=== PATIENT | female | born 1965 | race Caucasian/White ===

== ENCOUNTER → 2017-02-19 | Outpatient (CLI) | payer OTHER ==
[~2017-02-19] MED LIST: ALEVE PO; OXYC1TAB3 PO; PRED50TA PO; SUMA100T16 PO; [UNRECOGNIZED DRUG - OTHER]
--- NOTE | 2017-02-19 16:38 | MAMMOGRAPHY REPORT ---
BILATERAL DIGITAL SCREENING MAMMOGRAM TOMOSYNTHESIS WITH CAD: 02/19/2017 CLINICAL HISTORY: Routine screening. Patient has no complaints. TECHNIQUE: Breast tomosynthesis in addition to standard 2D mammography was performed. Current study was also evaluated with a Computer Aided Detection (CAD) system. COMPARISON: Comparison is made to exams dated: 05/29/2016 mammogram, 01/09/2016 mammogram, 08/15/2010 mammogram, and 08/08/2010 mammogram - [facility]. BREAST COMPOSITION: The tissue of both breasts is extremely dense, which lowers the sensitivity of mammography. FINDINGS: The patient failed to follow-up for a previously recommended short interval follow-up diag nostic exam to ensure stability of other microcalcifications after stereotactic biopsy performed in the left breast. There is a stable metallic biopsy marker in the upper outer posterior left breast. There are punct ate microcalcifications scattered throughout each breast, best appreciated in the inferior aspect of the breasts on the MLO views. There is currently no new suspicious grouping or cluster of microcalc ifications. Although the patient failed to follow-up for repeat spot magnification views in the stacie asts to ensure stability of the scattered and loosely grouped microcalcifications which were better visualized compared to prior mammograms, given the diffuse bilateral nature and previous left stereo tactic biopsy which yielded benign results, would recommend continuation of annual screening mammogr aphy schedule. No obvious new mass, focal area of architectural distortion or developing asymmetry is seen bilatera lly. IMPRESSION: ACR BI-RADS CATEGORY 1: NEGATIVE There is no mammographic evidence of malignancy. A 1 year screening mammogram is recommended. The p atient will receive written notification of the results. Approximately 10% of breast cancers are not detected with mammography. A negative mammographic repor t should not delay biopsy if a clinically suggestive mass is present. Lenore Greer M.D. ay/:02/19/2017 15:30:50 Horse Show Judge: Valerie MATA(Kevin)(M), [facility] letter sent: Normal 1/2 BI-RADS Code: ACR BI-RADS Category 1: Negative
== END | disposition home or self-care (01) ==
LOC: C.MAMM 14:24
PROVIDERS: ATTEND Family Medicine
DX: Z12.31 Encounter for screening mammogram for malignant neoplasm of breast (principal)

== ENCOUNTER 2020-03-11 18:04 | Inpatient (IN) ==
[2020-03-11] MEDS ORDERED: DiphenhydrAMINE HCL 50 MG/ML VIAL IV STA (19:48)
[2020-03-11] MEDS ORDERED: SODIUM CHLORIDE 0.9% 1000ML 2,000 ML IV ONE (19:48)
[2020-03-11] MEDS ORDERED: ONDANSETRON INJ 2 MG/ML 2 ML VIAL IV STA (19:48)
[2020-03-11] MEDS ORDERED: ACETAMINOPHEN 500 MG TAB PO STA (19:50)
[2020-03-11 20:08] LABS: Basophils # (auto) 0.02 K/uL (0-0.2); Basophils % (auto) 0.5 %; Eosinophils # (auto) 0.04 K/uL (0-0.5); Eosinophils % (auto) 0.9 %; Hematocrit (blood only) 35.9 % (37-47); Hemoglobin 12.2 g/dL (12.0-16.0); Lymphocytes # (auto) 0.82 K/uL (1.2-3.4); Lymphocytes % (auto) 19.4 %; Mean Corpuscular Hemoglobin 29.4 pg (25-34); Mean Corpuscular Volume 86.5 fL (80-100); Mean Platelet Volume 10.1 fL (7.4-10.4); Monocytes % (auto) 14.2 %; Neutrophils # (auto) 2.75 K/uL (1.4-6.5); Platelet Count 167 K/uL (130-400); RDW Coefficient of Variation 12.7 % (11.5-14.5); RDW Standard Deviation 40.5 fL (36.4-46.3); Red Blood Count 4.15 M/uL (4.2-5.4); White Blood Count 4.23 K/uL (4.8-10.8)
[2020-03-11 20:09] LABS: Appearance Urine Clear (Clear); Bacteria Urine Automated Negative (Negative); Bilirubin Urine Negative (Negative); Blood Urine 1+ (Negative); Cast Urine Automated 0 /lpf (0-5); Color Urine Yellow; Glucose Urine UA Negative (Negative); Ketones Urine Negative (Negative); Leukocyte Esterase Urine 2+ (Negative); Nitrite Urine Negative (Negative); Protein Urine Negative (Negative); RBC Urine Automated 0-4 /hpf (0-4); Specific Gravity Urine 1.008 (1.000-1.030); Urobilinogen Urine Negative (Negative)
[2020-03-11 20:15] LABS: Alanine Aminotransferase 24 U/L (12-78); Albumin Level 2.9 gm/dl (3.4-5.0); Aspartate Aminotransferase 27 U/L (15-37); BUN Creatinine Ratio 10.2 (10-20); Blood Urea Nitrogen 9 mg/dl (7-18); Calcium 8.9 mg/dl (8.5-10.1); Carbon Dioxide 28 mmol/L (21-32); Chloride 102 mmol/L (98-107); Creatinine Clr Calc Pharmacy 81.7 ml/min; Est GFR (Non-African American) 79.3; Glucose 105 mg/dl (70-99); Lipase 55 U/L (73-393); Potassium 3.2 mmol/L (3.5-5.1); Sodium 135 mmol/L (136-145)
[2020-03-11 20:20] LABS: Albumin Globulin Ratio 0.7 (0.9-2); Alkaline Phosphatase 58 U/L (45-117); Bilirubin,Total 0.5 mg/dl (0.2-1); Globulin 4.3 gm/dl (2.5-4.0); Total Protein 7.2 gm/dl (6.4-8.2); Troponin I < 0.015 ng/ml (0-0.045)
--- NOTE | 2020-03-11 20:47 | XRay Report ---
SINGLE VIEW CHEST CLINICAL HISTORY: Fever. FINDINGS: 2 AP, portable, upright chest radiographs are compared to study dated 10/05/2019. The heart is top normal for projection. The mediastinal contour is within normal limits. Chronic interstitial t hickening similar to previous. There is mild bibasilar atelectasis. No airspace consolidation or larg e pleural effusion is identified. No pneumothorax is seen. The skeletal structures are osteopenic. Th e bony thorax is grossly intact. IMPRESSION: No active disease in the chest. ACT 112: Negative or not required by law. Electronically signed by: Elian Singh M.D. 03/11/2020 8:45 PM
[2020-03-11] MEDS ORDERED: IOVERSOL 100ml IV PRN (20:57)
[2020-03-11 21:04] LABS: Prothrombin Time 10.8 Seconds (9.0-12.0)
--- NOTE | 2020-03-11 21:11 | CT Scan Report ---
CT SCAN OF THE BRAIN WITHOUT IV CONTRAST CLINICAL HISTORY: Headache. COMPARISON STUDY: No priors. TECHNIQUE: Unenhanced axial CT scan of the brain is performed from the vertex to the skull base. A d ose lowering technique was utilized adhering to the principles of ALARA. CT DOSE: 537.48 mGy.cm FINDINGS: Brain parenchyma: The brain parenchyma is normal in appearance. There is no hemorrhage, mass effect, or evidence of acute territorial ischemia by CT criteria. Suero-white matter differentiation is preser stacy. No extra-axial fluid collection is seen. Ventricles, sulci, cisterns: Normal in configuration. Intracranial vasculature: There is mild atherosclerotic calcification of the cavernous carotid arteri es. Calvarium: Unremarkable. Sinuses and mastoids: The visualized paranasal sinuses are clear. The mastoid air cells are well pneu matized. Orbits: The bony orbits are grossly intact. IMPRESSION: There is no hemorrhage, mass effect, or evidence of acute territorial ischemia by CT jennifer coleman. ACT 112: Negative or not required by law. Electronically signed by: Elian Sinhg M.D. 03/11/2020 9:06 PM
[2020-03-11 21:16] LABS: Influenza A virus by PCR Neg for Influ A (Neg); Influenza B virus by PCR Neg for Influ B (Neg)
--- NOTE | 2020-03-11 21:20 | CT Scan Report ---
CT SCAN OF THE ABDOMEN AND PELVIS WITH IV CONTRAST CLINICAL HISTORY: Left lower quadrant abdominal pain. Nausea and vomiting. Diarrhea. COMPARISON STUDY: Pelvic ultrasound dated 07/15/2006. TECHNIQUE: Following the IV administration of 93 cc of Optiray 320, CT scan of the abdomen and pelvi s is performed from the lung bases to the proximal femora. Images are reviewed in the axial, sagittal , and coronal planes. IV contrast was administered without complication. A dose lowering technique wa s utilized adhering to the principles of ALARA. CT DOSE: 363.64 mGy.cm FINDINGS: Lung bases: The heart is normal in size and without pericardial effusion. The lung bases are clear no ting dependent atelectasis. Liver: The contrast-enhanced liver is normal in size, contour, and attenuation. There is no intrahepa tic biliary ductal dilatation. The hepatic veins and portal veins are patent. Scattered subcentimeter hepatic hypodensities likely represent cysts but are too small for definitive characterization. Gallbladder: Mildly distended but otherwise normal in appearance. Spleen: Normal in size and attenuation. Pancreas: Moderately atrophic and grossly unremarkable. Adrenal glands: Unremarkable. Kidneys: The contrast enhanced kidneys. There is a 3 mm obstructing calculus at the left vesicoureter al junction seen on image #[id number]. This causes moderate left hydroureteronephrosis. There is urothelial thickening and enhancement seen within the left ureter and the left renal pelvis as well as left-side d perinephric stranding. There is heterogeneous enhancement of the left kidney. There is at least one additional nonobstructing calculus in the lower pole of the left kidney measuring up to 4 mm. No rig ht renal calculi are clearly identified on this contrast-enhanced examination. The right kidney enhan krystal homogeneously and there is no right-sided hydronephrosis. Abdominal vasculature: The abdominal aorta is normal in course and caliber noting scattered foci of a therosclerotic calcification. Bowel: There is moderate colonic fecal retention. No bowel obstruction is seen. The appendix is well -visualized and normal. Peritoneum: There is no intraperitoneal free air or abdominal ascites. There is a small fat-containin g umbilical hernia. Lymphadenopathy: None. Pelvic viscera: The bladder, uterus, and adnexa are normal as imaged. Skeletal structures: No lytic or blastic lesions are seen. Mild sclerotic change is noted in the sacr oiliac joints. IMPRESSION: 1. There is a 3 mm obstructing calculus at the left vesicoureteral junction which causes moderate lef t hydroureteronephrosis. 2. There is an additional nonobstructing calculus in the left lower pole. 3. There is heterogeneous enhancement of the left kidney, with urothelial thickening and enhancement noted in the left renal pelvis and ureter. This may be related to obstruction/hydronephrosis. Correla te clinically and with urinalysis for evidence of superimposed urinary tract infection. 4. Moderate constipation. 5. Additional findings as above. ACT 112: Negative or not required by law. Electronically signed by: Elian Singh M.D. 03/11/2020 9:18 PM
[2020-03-11] MEDS ORDERED: cefTRIAXone SODIUM 1,000 MG/50 ML BAG IV STA (21:22)
[2020-03-11 21:27] LABS: Lyme Ab IgG w/WB Rflx Negative (Negative)
[2020-03-11 21:39] LABS: Lyme Ab IgM w/WB Rflx Positive (Negative)
--- NOTE | 2020-03-11 22:54 | Emergency Department Note ---
History of Present Illness General Chief complaint: Nausea Stated complaint: INFECTION, COVID IS NEGITIVE, ILL SINCE SATURDAY History of Present Illness Maximum Pain Intensity: 3 This patient is a 55-year-old female who presents ambulatory to the emergency department for evaluation of left lower abdominal pain that she describes as a sharp, stabbing, constant sensation for the last several days. The patient recently traveled back from the [place]. She was nauseated, she thought t hat she may have food poisoning. She saw her primary care physician. COVID testing was performed and negative. She has not tried anything [id number] for her symptoms. She denies any urinary symptoms. Last bowel movement was reportedly normal. She has felt nauseated without any vomiting. Fever was reportedly as high as 102 F at home. Patient also felt like she was confused. No weakness reported. No slurred speech. Symptoms have been ongoing for the last 5 days. Home Medications Home Medications Medication Instructions Recorded Confirmed Type gabapentin 400 mg capsule 400 mg PO TID #90 cap 12/14/19 03/16/20 Rx quetiapine 50 mg tablet 50 mg PO HS #30 tab 01/08/20 03/16/20 Rx sumatriptan succinate 100 mg tablet See Rx Instructions PO .COMPLEX 02/03/20 03/16/20 Rx #30 tab acetaminophen 650 mg PO Q4H PRN #30 tab 03/13/20 03/16/20 Rx cephalexin [Keflex] 500 mg PO BID 10 Days #20 cap 03/13/20 03/16/20 Rx doxycycline hyclate 100 mg PO BID 14 Days #28 tab 03/13/20 03/16/20 Rx ibuprofen 800 mg PO TID PRN #10 tab 03/13/20 03/16/20 Rx Allergies Allergy/AdvReac Type Severity Reaction Status Date / Time No Known Allergies Allergy Mild Verified 03/16/20 12:13 Past Med/Surg History Medical History Bipolar disorder Fibromyalgia History of Lyme disease Migraine headache Surgical History History of knee surgery History of tonsillectomy Family History Father Kidney disease Mother Breast cancer Grandmother (Maternal) Breast cancer Aunt Breast cancer Denies family history of Colon cancer Ovarian cancer Prostate cancer Myocardial infarction Social History Preferred Language: [place] Communication Ability: Effective Cargo Checker Required: No Beliefs That Will Affect Care: None marital status: Current Living Situation: Spouse Feels Safe at Home: Yes Smoking Status: Former smoker Do You Dip or Chew Tobacco: No ; Hx Alcohol Use: No Hx Substance Use: No Seatbelt Use: always Review of Systems A total of 10 systems reviewed and were otherwise negative Physical Exam Vital Signs Vital Signs - 24 hr 03/11/20 18:07 03/11/20 20:06 03/11/20 21:21 Temperature 37.4 C Temperature Source Oral Pulse Rate 95 H Pulse Rate [Apical] 76 77 Respiratory Rate 20 23 22 Respiratory Effort / Characteristics Non-Labored Spontaneous Respiratory Depth Normal Normal Respiratory Pattern Regular Blood Pressure 127/73 Blood Pressure [Right Arm] 118/79 131/61 Blood Pressure Mean 91 Blood Pressure Mean [Right Arm] 92 84 Blood Pressure Position Sitting Pulse Oximetry 94 98 95 Oxygen Delivery Method Room Air Room Air Room Air Sepsis Recent Fever Within 48 Hours Yes Sepsis New/Unexplained Change in Mental Status No Sepsis Action Taken by Nursing No Action Required Constitutional WD/WN, vitals as above Eyes EOM intact bilaterally ENMT external ear and nose normal, oropharynx normal Neck trachea midline Respiratory normal respiratory effort, lungs clear to auscultation Cardiovascular RRR, no murmur, no edema Gastrointestinal (Abdomen) normal bowel sounds, soft, nontender, no hepatosplenomegaly Musculoskeletal no cyanosis or clubbing, extremities motor strength 5/5 Skin no rashes, warm and dry Neurologic Alert and oriented x3. No focal motor deficits. Psychiatric Acting appropriately Course Course Patient was seen and examined Vital signs including blood pressure were reviewed medications list was verified with patient Labs were obtained, and a saline lock was established Upon reevaluation, patient was resting comfortably. We discussed her results. She voiced understanding, and was comfortable with the disposition. I spoke with the hospitalist service. They kindly agreed to evaluate the patient for likely inpatient management. Consultations Consultation #1: [facility] hospitalist service Administered Medications Discontinued Medications Acetaminophen (Tylenol) 1,000 mg PO NOW STA Stop: 03/11/20 19:51 Last Admin: 06/19/20 20:08 Dose: 1,000 mg Documented by: [id number] Acetaminophen (Tylenol) 650 mg PO Q4H PRN PRN Reason: pain/fever Stop: 04/11/20 03:01 Last Admin: 03/12/20 20:20 Dose: 650 mg Documented by: [id number] Cephalexin HCl (Keflex 500mg Homepack) 1 homepack PO NOW ONE Stop: 03/13/20 14:37 Last Admin: 03/13/20 15:25 Dose: 1 homepack Documented by: [id number] Diphenhydramine HCl (Benadryl) 50 mg IV NOW STA Stop: 03/11/20 19:49 Last Admin: 03/11/20 20:09 Dose: 50 mg Documented by: [id number] Doxycycline Hyclate (Vibramycin 100mg Homepack) 1 homepack PO ONE ONE Stop: 03/13/20 14:37 Last Admin: 03/13/20 15:25 Dose: 1 homepack Documented by: [id number] Enoxaparin Sodium (Lovenox) 40 mg SQ QAM LYNN Stop: 04/11/20 08:59 Last Admin: 03/13/20 08:05 Dose: 40 mg Documented by: [id number] Admin: 03/12/20 09:46 Dose: Not Given Documented by: [id number] Gabapentin (Neurontin) 400 mg PO TID LYNN Stop: 04/11/20 08:59 Last Admin: 03/13/20 13:11 Dose: 400 mg Documented by: [id number] Admin: 03/13/20 08:05 Dose: 400 mg Documented by: [id number] Admin: 03/12/20 20:18 Dose: 400 mg Documented by: [id number] Admin: 03/12/20 14:11 Dose: Not Given Documented by: [id number] Admin: 03/12/20 09:38 Dose: 400 mg Documented by: [id number] Sodium Chloride (Nss 1000ml) 2,000 mls @ 999 mls/hr IV .Q2H1M ONE Stop: 03/11/20 21:48 Last Infusion: 03/11/20 22:09 Dose: 0 mls/hr Documented by: [id number] Admin: 03/11/20 20:07 Dose: 999 mls/hr Documented by: [id number] Ceftriaxone Sodium (Rocephin) 1,000 mg in 50 mls @ 100 mls/hr IV NOW STA Stop: 03/11/20 21:51 Last Infusion: 03/11/20 22:20 Dose: 0 mls/hr Documented by: [id number] Admin: 03/11/20 21:47 Dose: 100 mls/hr Documented by: [id number] Potassium Chloride/Sodium Chloride (Normal Saline W/20 Meq Kcl) 20 meq in 1,000 mls @ 100 mls/hr IV .Q10H LYNN Stop: 04/11/20 03:59 Last Admin: 03/13/20 08:42 Dose: 100 mls/hr Documented by: [id number] Infusion: 03/13/20 08:16 Dose: 0 mls/hr Documented by: [id number] Admin: 03/12/20 23:43 Dose: 100 mls/hr Documented by: [id number] Infusion: 03/12/20 23:43 Dose: 100 mls/hr Documented by: [id number] Admin: 03/12/20 14:11 Dose: 100 mls/hr Documented by: [id number] Infusion: 03/12/20 13:38 Dose: 0 mls/hr Documented by: [id number] Admin: 03/12/20 04:42 Dose: 100 mls/hr Documented by: [id number] Ceftriaxone Sodium 1,000 mg/ (Dextrose) 50 mls @ 100 mls/hr IV Q24H LYNN; Protocol Stop: 03/21/20 19:59 Last Infusion: 03/12/20 20:55 Dose: 0 mls/hr Documented by: [id number] Admin: 03/12/20 20:17 Dose: 100 mls/hr Documented by: [id number] Doxycycline Hyclate 100 mg/ (Dextrose) 110 mls @ 50 mls/hr IV Q12H LYNN; Protocol Stop: 03/26/20 09:59 Last Infusion: 03/13/20 10:39 Dose: 0 mls/hr Documented by: [id number] Admin: 03/13/20 08:45 Dose: 50 mls/hr Documented by: [id number] Infusion: 03/12/20 23:48 Dose: 0 mls/hr Documented by: [id number] Admin: 03/12/20 21:36 Dose: 50 mls/hr Documented by: [id number] Infusion: 03/12/20 12:53 Dose: 0 mls/hr Documented by: [id number] Admin: 03/12/20 10:35 Dose: 50 mls/hr Documented by: [id number] Ibuprofen (Motrin) 800 mg PO TID PRN PRN Reason: Headache or Pain Stop: 04/11/20 22:02 Last Admin: 03/13/20 05:46 Dose: 800 mg Documented by: [id number] Iothalamate Meglumine (Cysto-Conray Ii) Confirm Administered Dose 250 ml .ROUTE .STK-MED ONE Stop: 03/12/20 12:50 Last Admin: 03/12/20 12:58 Dose: 9 ml Documented by: [id number] Ioversol (Optiray 320 100ml) 93 ml IV ONCE PRN PRN Reason: Interaction Checking Stop: 03/15/20 20:56 Last Admin: 03/11/20 20:58 Dose: 93 ml Documented by: [id number] Ondansetron HCl (Zofran) 4 mg IV NOW STA Stop: 03/11/20 19:49 Last Admin: 03/11/20 20:09 Dose: 4 mg Documented by: [id number] Quetiapine Fumarate (Seroquel) 50 mg PO HS LYNN Stop: 04/11/20 20:59 Last Admin: 03/12/20 20:18 Dose: 50 mg Documented by: [id number] Sumatriptan Succinate (Imitrex) 100 mg PO DAILY PRN PRN Reason: Migraine Headache Stop: 04/11/20 03:01 Last Admin: 03/13/20 06:07 Dose: 100 mg Documented by: [id number] Admin: 03/12/20 04:42 Dose: 100 mg Documented by: [id number] Medical Decision Making Medical Records Attestation: I reviewed the patient's medical records. Home Medications Current Medication List: was personally reviewed by me Laboratory Data Attestation: I reviewed the patient's lab results. Result diagrams: 03/13/20 05:33 03/13/20 05:33 Lab Results 03/11/20 03/11/20 03/11/20 Range/Units 19:39 19:39 19:39 WBC 4.23 L (4.8-10.8) K/uL RBC 4.15 L (4.2-5.4) M/uL Hgb 12.2 (12.0-16.0) g/dL Hct 35.9 L (37-47) % MCV 86.5 (80-100) fL MCH 29.4 (25-34) pg MCHC 34.0 (32-36) g/dL RDW Std Deviation 40.5 (36.4-46.3) fL RDW Coeff of Ann [place] 12.7 (11.5-14.5) % Plt Count 167 (130-400) K/uL MPV 10.1 (7.4-10.4) fL Immature Gran % (Auto) 0.0 % Neut % (Auto) 65.0 % Lymph % (Auto) 19.4 % [place] % (Auto) 14.2 % Eos % (Auto) 0.9 % Baso % (Auto) 0.5 % Immature Gran # (Auto) 0.00 (0.00-0.02) K/uL Neut # (Auto) 2.75 (1.4-6.5) K/uL Lymph # (Auto) 0.82 L (1.2-3.4) K/uL [place] # (Auto) 0.60 H (0.11-0.59) K/uL Eos # (Auto) 0.04 (0-0.5) K/uL Baso # (Auto) 0.02 (0-0.2) K/uL PT (9.0-12.0) Seconds INR (0.9-1.1) Sodium 135 L (136-145) mmol/L Potassium 3.2 L (3.5-5.1) mmol/L Chloride 102 (98-107) mmol/L Carbon Dioxide 28 (21-32) mmol/L Anion Gap 5.0 (3-11) BUN 9 (7-18) mg/dl Creatinine 0.84 (0.6-1.2) mg/dl Est Cr Clr Drug Dosing 81.7 ml/min Est GFR ( Amer) 92.0 Est GFR (Non-Af Amer) 79.3 BUN/Creatinine Ratio 10.2 (10-20) Glucose 105 H (70-99) mg/dl Calcium 8.9 (8.5-10.1) mg/dl Magnesium 2.0 (1.8-2.4) mg/dl Total Bilirubin 0.5 (0.2-1) mg/dl AST 27 (15-37) U/L ALT 24 (12-78) U/L Alkaline Phosphatase 58 (45-117) U/L Troponin I < 0.015 (0-0.045) ng/ml Total Protein 7.2 (6.4-8.2) gm/dl Albumin 2.9 L (3.4-5.0) gm/dl Globulin 4.3 H (2.5-4.0) gm/dl Albumin/Globulin Ratio 0.7 L (0.9-2) Lipase 55 L (73-393) U/L Urine Color Yellow Urine Appearance Clear (Clear) Urine pH 6.0 (4.5-7.5) Ur Specific [place] 1.008 (1.000-1.030) Urine Protein Negative (Negative) Urine Glucose (UA) Negative (Negative) Urine Ketones Negative (Negative) Urine Blood 1+ H (Negative) Urine Nitrite Negative (Negative) Urine Bilirubin Negative (Negative) Urine Urobilinogen Negative (Negative) Ur Leukocyte Esterase 2+ H (Negative) Urine WBC (Auto) 10-30 H (0-5) /hpf Urine RBC (Auto) 0-4 (0-4) /hpf U Hyaline Cast (Auto) 0 (0-5) /lpf U Epithel Cells (Auto) 5-10 H (0-5) /lpf Urine Bacteria (Auto) Negative (Negative) Lyme Disease IgG Ab (Negative) Lyme IgG (Western Blot) (NEGATIVE) Lyme IgG 18 kDa Band Lyme IgG 23 kDa Band Lyme IgG 28 kDa Band Lyme IgG 30 kDa Band Lyme IgG 39 kDa Band Lyme IgG 41 kDa Band Lyme IgG 45 kDa Band Lyme IgG 58 kDa Band Lyme IgG 66 kDa Band Lyme IgG 93 kDa Band Lyme IgM Ab (WB) (NEGATIVE) Lyme Disease IgM Ab (Negative) Lyme IgM 23 kDa Band Lyme IgM 39 kDa Band Lyme IgM 41 kDa Band Influenza Type A (PCR) (Neg) Influenza Type B (PCR) (Neg) 03/11/20 03/11/20 03/11/20 Range/Units 19:39 19:39 20:11 WBC (4.8-10.8) K/uL RBC (4.2-5.4) M/uL Hgb (12.0-16.0) g/dL Hct (37-47) % MCV (80-100) fL MCH (25-34) pg MCHC (32-36) g/dL RDW Std Deviation (36.4-46.3) fL RDW Coeff of Ann Marie (11.5-14.5) % Plt Count (130-400) K/uL MPV (7.4-10.4) fL Immature Gran % (Auto) % Neut % (Auto) % Lymph % (Auto) % [place] % (Auto) % Eos % (Auto) % Baso % (Auto) % Immature Gran # (Auto) (0.00-0.02) K/uL Neut # (Auto) (1.4-6.5) K/uL Lymph # (Auto) (1.2-3.4) K/uL [place] # (Auto) (0.11-0.59) K/uL Eos # (Auto) (0-0.5) K/uL Baso # (Auto) (0-0.2) K/uL PT (9.0-12.0) Seconds INR (0.9-1.1) Sodium (136-145) mmol/L Potassium (3.5-5.1) mmol/L Chloride (98-107) mmol/L Carbon Dioxide (21-32) mmol/L Anion Gap (3-11) BUN (7-18) mg/dl Creatinine (0.6-1.2) mg/dl Est Cr Clr Drug Dosing ml/min Est GFR ( Amer) Est GFR (Non-Af Amer) BUN/Creatinine Ratio (10-20) Glucose (70-99) mg/dl Calcium (8.5-10.1) mg/dl Magnesium (1.8-2.4) mg/dl Total Bilirubin (0.2-1) mg/dl AST (15-37) U/L ALT (12-78) U/L Alkaline Phosphatase (45-117) U/L Troponin I (0-0.045) ng/ml Total Protein (6.4-8.2) gm/dl Albumin (3.4-5.0) gm/dl Globulin (2.5-4.0) gm/dl Albumin/Globulin Ratio (0.9-2) Lipase (73-393) U/L Urine Color Urine Appearance (Clear) Urine pH (4.5-7.5) Ur Specific [place] (1.000-1.030) Urine Protein (Negative) Urine Glucose (UA) (Negative) Urine Ketones (Negative) Urine Blood (Negative) Urine Nitrite (Negative) Urine Bilirubin (Negative) Urine Urobilinogen (Negative) Ur Leukocyte Esterase (Negative) Urine WBC (Auto) (0-5) /hpf Urine RBC (Auto) (0-4) /hpf U Hyaline Cast (Auto) (0-5) /lpf U Epithel Cells (Auto) (0-5) /lpf Urine Bacteria (Auto) (Negative) Lyme Disease IgG Ab Negative (Negative) Lyme IgG (Western Blot) NEGATIVE (NEGATIVE) Lyme IgG 18 kDa Band REACTIVE A Lyme IgG 23 kDa Band REACTIVE A Lyme IgG 28 kDa Band NON-REACTIVE Lyme IgG 30 kDa Band NON-REACTIVE Lyme IgG 39 kDa Band NON-REACTIVE Lyme IgG 41 kDa Band REACTIVE A Lyme IgG 45 kDa Band NON-REACTIVE Lyme IgG 58 kDa Band NON-REACTIVE Lyme IgG 66 kDa Band NON-REACTIVE Lyme IgG 93 kDa Band REACTIVE A Lyme IgM Ab (WB) NEGATIVE (NEGATIVE) Lyme Disease IgM Ab Positive A (Negative) Lyme IgM 23 kDa Band REACTIVE A Lyme IgM 39 kDa Band NON-REACTIVE Lyme IgM 41 kDa Band NON-REACTIVE Influenza Type A (PCR) Neg for Influ A (Neg) Influenza Type B (PCR) Neg for Influ B (Neg) 03/11/20 Range/Units 20:45 WBC (4.8-10.8) K/uL RBC (4.2-5.4) M/uL Hgb (12.0-16.0) g/dL Hct (37-47) % MCV (80-100) fL MCH (25-34) pg MCHC (32-36) g/dL RDW Std Deviation (36.4-46.3) fL RDW Coeff of [place] (11.5-14.5) % Plt Count (130-400) K/uL MPV (7.4-10.4) fL Immature Gran % (Auto) % Neut % (Auto) % Lymph % (Auto) % [place] % (Auto) % Eos % (Auto) % Baso % (Auto) % Immature Gran # (Auto) (0.00-0.02) K/uL Neut # (Auto) (1.4-6.5) K/uL Lymph # (Auto) (1.2-3.4) K/uL [place] # (Auto) (0.11-0.59) K/uL Eos # (Auto) (0-0.5) K/uL Baso # (Auto) (0-0.2) K/uL PT 10.8 (9.0-12.0) Seconds INR 1.0 (0.9-1.1) Sodium (136-145) mmol/L Potassium (3.5-5.1) mmol/L Chloride (98-107) mmol/L Carbon Dioxide (21-32) mmol/L Anion Gap (3-11) BUN (7-18) mg/dl Creatinine (0.6-1.2) mg/dl Est Cr Clr Drug Dosing ml/min Est GFR ( Amer) Est GFR (Non-Af Amer) BUN/Creatinine Ratio (10-20) Glucose (70-99) mg/dl Calcium (8.5-10.1) mg/dl Magnesium (1.8-2.4) mg/dl Total Bilirubin (0.2-1) mg/dl AST (15-37) U/L ALT (12-78) U/L Alkaline Phosphatase (45-117) U/L Troponin I (0-0.045) ng/ml Total Protein (6.4-8.2) gm/dl Albumin (3.4-5.0) gm/dl Globulin (2.5-4.0) gm/dl Albumin/Globulin Ratio (0.9-2) Lipase (73-393) U/L Urine Color Urine Appearance (Clear) Urine pH (4.5-7.5) Ur Specific [place] (1.000-1.030) Urine Protein (Negative) Urine Glucose (UA) (Negative) Urine Ketones (Negative) Urine Blood (Negative) Urine Nitrite (Negative) Urine Bilirubin (Negative) Urine Urobilinogen (Negative) Ur Leukocyte Esterase (Negative) Urine WBC (Auto) (0-5) /hpf Urine RBC (Auto) (0-4) /hpf U Hyaline Cast (Auto) (0-5) /lpf U Epithel Cells (Auto) (0-5) /lpf Urine Bacteria (Auto) (Negative) Lyme Disease IgG Ab (Negative) Lyme IgG (Western Blot) (NEGATIVE) Lyme IgG 18 kDa Band Lyme IgG 23 kDa Band Lyme IgG 28 kDa Band Lyme IgG 30 kDa Band Lyme IgG 39 kDa Band Lyme IgG 41 kDa Band Lyme IgG 45 kDa Band Lyme IgG 58 kDa Band Lyme IgG 66 kDa Band Lyme IgG 93 kDa Band Lyme IgM Ab (WB) (NEGATIVE) Lyme Disease IgM Ab (Negative) Lyme IgM 23 kDa Band Lyme IgM 39 kDa Band Lyme IgM 41 kDa Band Influenza Type A (PCR) (Neg) Influenza Type B (PCR) (Neg) Imaging Data Attestation: I personally reviewed and interpreted this imaging study as follows: Radiologist's Impression: Chest x-ray IMPRESSION: No active disease in the chest. ACT 112: Negative or not required by law. Electronically signed by: Elian Singh M.D. 03/11/2020 8:45 PM Dictated: 03/11/202044 Transcribed: 03/11/202044 CT abdomen pelvis IV contrast only IMPRESSION: 1. There is a 3 mm obstructing calculus at the left vesicoureteral junction which causes moderate left hydroureteronephrosis. 2. There is an additional nonobstructing calculus in the left lower pole. 3. There is heterogeneous enhancement of the left kidney, with urothelial thickening and enhancement noted in the left renal pelvis and ureter. This may be related to obstruction/hydronephrosis. Correlate clinically and with urinalys is for evidence of superimposed urinary tract infection. 4. Moderate constipation. 5. Additional findings as above. ACT 112: Negative or not required by law. Electronically signed by: Elian Singh M.D. 03/11/2020 9:18 PM Dictated: 03/11/202109 Transcribed: 03/11/202109 CT head without contrast IMPRESSION: There is no hemorrhage, mass effect, or evidence of acute territorial ischemia by CT criteria. ACT 112: Negative or not required by law. Electronically signed by: Elian Singh M.D. 03/11/2020 9:06 PM Dictated: 03/11/202102 Transcribed: 03/11/202102 ECG Data Attestation: I personally reviewed and interpreted this ECG as follows: Indication: + other Rate (beats per minute): 71 Rhythm: + other (Sinus rhythm with occasional PVCs) ECG Sargent: + Normal Additional Comments: No ectopy noted. No prior for comparison noted. MDM Narrative Differential diagnosis: Infectious etiology, ureteral stone, fibroid, ovarian torsion, diverticulitis, intracranial abnormality, cardiac arrhythmia, thoracic abnormality, among others This patient is a 55-year-old female who presents the emergency department with fever, abdominal pain and possible confusion. On exam, she was nontoxic in appearance. Vital signs are stable. Urinalysis appears to be infected. Renal function intact. Imaging was performed. The patient has a ureteral calculus in addition to possible pyelonephritis. For these reasons, it was felt that inpatient consultation was warranted. She was given antibiotics in the emergency department. She will be evaluated by the hospitalist for further management Impression & Plan Ureterolithiasis, Acute pyelonephritis Discharge Plan Visit Data *Final* Discharge Date/Time: 03/12/20 02:44 Chief Complaint: Nausea Stated Complaint: INFECTION, COVID IS NEGITIVE, ILL SINCE SATURDAY ED Provider: [facility] ED Midlevel Provider: Lisa Vizcarra Discharge Problem: Ureterolithiasis, Acute pyelonephritis Patient Disposition: Admitted As Inpatient Condition: Fair Discharge Instructions Interventions: ED Discharge Assessment Last Done: 03/12/20 02:44
--- NOTE | 2020-03-12 01:05 | History & Physical Report ---
Date of Service March 12, 2020 Assessment & Plan (1) Nephrolithiasis: 55-year-old female with past medical history fibromyalgia, bipolar depression, migraine headaches presents with concerns of left lower abdominal pain found to have a 3 mm obstructing calculus at the left vesicoureteral junc tion with left hydroureteronephrosis on CT Abd/Pelvis. L Ureteral Calculus -CT Abd/Pelvis: 3 mm obstructing calculus at the left vesicoureteral junction which causes moderate left hydroureteronephrosis. There is an additional nonobstructing calculus in the left lower pole. There is heterogeneous enhancement of the left kidney, with urothelial thickening and enhancement noted in the left renal pelvis and ureter -UA with 1+ blood, negative nitrite, 2+ LE, 1030 WBC, negative bacteria -pain management with PO Acetaminophen for mild pain, IV Morphine 2mg q4h prn for moderate pain, Dilaudid 0.5mg q4h for severe pain. Pain has been well controlled with Acetaminophen thus far -Zofran 4mg IV prn for any nausea -Cont IV Ceftriaxone -NPO for any possible surgical intervention tomorrow -IVF with NSS + 20meq KCl at 100mls/hr -appreciate Urology consult Fibromyalgia -Continue gabapentin 400 mg 3 times daily Bipolar depression -Continue quetiapine 50 mg nightly Migraine headaches -Continue sumatriptan succinate 100 mg prn as directed FEN/GI: NSS + 20meq KCl at 100mls/hr. NPO DVT prophylaxis: Lovenox SQ Full code Dispo: Med Surg History of Present Illness Chief Complaint: Nausea, abdominal pain Primary Care Provider: Stephanie Amos MD 55-year-old female with past medical history fibromyalgia, bipolar depression, migraine headaches presents with concerns of left lower abdominal pain that began about 5 days ago on Saturday. No previous such occurrence like this ever before. Pain described as sharp and stabbing, intermittent. Made worse with movement, alleviated by lying down. At its worst 8 out of 10 on a pain scale. Currently about a 4 or a 5. Has tried Motrin and aspirin alternating for this with some relief. Associated chills and fevers as high as 102.9 F during the same time period. Patient with PCP appointment 03/10/2020 and was ordered COVID-19 testing as she had recently visited [place] the weekend prior versus acute URI. This was negative. Patient also with nausea and decreased appetite on Saturday. She thought this may have been due to food poisoning as she ate crab cakes the day prior. Patient also notes that she has had episodes where she felt confused. For instance, on Saturday night after meditating patient awoke and saw that it was 1230 but did not know if it was a.m. or p.m. and notes that she "was walking into [place]". Patient otherwise denies any actual vomiting, diarrhea, weakness, slurred speech, chest pain, shortness of breath, urinary symptoms of hematuria, urgency, frequency. Patient with no other acute concerns or complaints. Pertinent labs: Na 135, K 3.2, albumin 2.9. Otherwise largely unremarkable. U/A: 1+ blood, negative nitrite, 2+ LE, 1030 WBC, negative bacteria Head CT: There is no hemorrhage, mass effect, or evidence of acute territorial ischemia CXR: No active disease in the chest CT Abd/Pelvis: There is a 3 mm obstructing calculus at the left vesicoureteral junction which causes moderate left hydroureteronephrosis. There is an additional nonobstructing calculus in the left lower pole. There is heterogeneous enhancement of the left kidney, with urothelial thickening and enhancement noted in the left renal pelvis and ureter. This may be related to obstruction/hydronephrosis. ER coursep.o. acetaminophen 1 g, IV ceftriaxone 1 g, IV diphenhydramine 50 mg, IV Zofran, NSS 2 L Allergies Allergy/AdvReac Type Severity Reaction Status Date / Time No Known Allergies Allergy Mild Verified 03/11/20 23:16 Home Medications Home Medications Medication Instructions Recorded Confirmed Type gabapentin 400 mg capsule 400 mg PO TID #90 cap 12/14/19 03/11/20 Rx quetiapine 50 mg tablet 50 mg PO HS #30 tab 01/08/20 03/11/20 Rx sumatriptan succinate 100 mg tablet See Rx Instructions PO .COMPLEX 02/03/20 03/11/20 Rx #30 tab acetaminophen 650 mg PO Q4H PRN #30 tab 03/13/20 Rx cephalexin [Keflex] 500 mg PO BID 10 Days #20 cap 03/13/20 Rx doxycycline hyclate 100 mg PO BID 14 Days #28 tab 03/13/20 Rx ibuprofen 800 mg PO TID PRN #10 tab 03/13/20 Rx Past Med/Surg History Medical History (Updated 03/14/20 @ 00:03 by Bernadine Carl) Bipolar disorder Fibromyalgia History of Lyme disease Migraine headache Surgical History History of knee surgery History of tonsillectomy Family History Father Kidney disease Mother Breast cancer Grandmother (Maternal) Breast cancer Aunt Breast cancer Social History Preferred Language: Tongan Communication Ability: Effective 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 Beliefs That Will Affect Care: None marital status: Current Living Situation: Spouse Feels Safe at Home: Yes Smoking Status: Former smoker Hx Alcohol Use: No Hx Substance Use: No Seatbelt Use: always Review of Systems Review of Systems: All systems reviewed & are unremarkable except as noted in HPI & below Physical Exam Constitutional: WD/WN, vitals as above Eyes: PERRL, conjunctivae normal, anicteric sclerae ENMT: external ear and nose normal, oropharynx normal Respiratory: normal respiratory effort, lungs clear to auscultation Cardiovascular: RRR, no murmur, no edema Gastrointestinal (Abdomen): Inspection/Auscultation: normal bowel sounds; abdomen not distended Percussion/Palpation: + abdomen tender (Mild TTP LLQ); no guarding Skin: no rashes, warm and dry Psychiatric: A+Ox3, euthymic affect Results & Data Results & Data ([facility]) Vital Signs (Past 12 Hours) Vital Signs Temp Pulse Pulse Resp BP BP Pulse Ox 03/12/20 00:28 112/56 L 98 03/11/20 22:30 90 17 125/59 L 96 03/11/20 22:00 72 16 121/65 96 03/11/20 21:21 77 22 131/61 95 03/11/20 20:06 76 23 118/79 98 03/11/20 18:07 37.4 C 95 H 20 127/73 94 Laboratory Results Laboratory Results - last 24 hr 03/11/20 03/11/20 03/11/20 19:39 19:39 19:39 WBC 4.23 L RBC 4.15 L Hgb 12.2 Hct 35.9 L MCV 86.5 MCH 29.4 MCHC 34.0 RDW Std Deviation 40.5 RDW Coeff of [place] 12.7 Plt Count 167 MPV 10.1 Immature Gran % (Auto) 0.0 Neut % (Auto) 65.0 Lymph % (Auto) 19.4 [place] % (Auto) 14.2 Eos % (Auto) 0.9 Baso % (Auto) 0.5 Immature Gran # (Auto) 0.00 Neut # (Auto) 2.75 Lymph # (Auto) 0.82 L [place] # (Auto) 0.60 H Eos # (Auto) 0.04 Baso # (Auto) 0.02 PT INR Sodium 135 L Potassium 3.2 L Chloride 102 Carbon Dioxide 28 Anion Gap 5.0 BUN 9 Creatinine 0.84 Est Cr Clr Drug Dosing 81.7 Est GFR ( Amer) 92.0 Est GFR (Non-Af Amer) 79.3 BUN/Creatinine Ratio 10.2 Glucose 105 H Calcium 8.9 Magnesium 2.0 Total Bilirubin 0.5 AST 27 ALT 24 Alkaline Phosphatase 58 Troponin I < 0.015 Total Protein 7.2 Albumin 2.9 L Globulin 4.3 H Albumin/Globulin Ratio 0.7 L Lipase 55 L Urine Color Yellow Urine Appearance Clear Urine pH 6.0 Ur Specific [place] 1.008 Urine Protein Negative Urine Glucose (UA) Negative Urine Ketones Negative Urine Blood 1+ H Urine Nitrite Negative Urine Bilirubin Negative Urine Urobilinogen Negative Ur Leukocyte Esterase 2+ H Urine WBC (Auto) 10-30 H Urine RBC (Auto) 0-4 U Hyaline Cast (Auto) 0 U Epithel Cells (Auto) 5-10 H Urine Bacteria (Auto) Negative Lyme Disease IgG Ab Lyme IgG (Western Blot) Lyme IgG 18 kDa Band Lyme IgG 23 kDa Band Lyme IgG 28 kDa Band Lyme IgG 30 kDa Band Lyme IgG 39 kDa Band Lyme IgG 41 kDa Band Lyme IgG 45 kDa Band Lyme IgG 58 kDa Band Lyme IgG 66 kDa Band Lyme IgG 93 kDa Band Lyme IgM Ab (WB) Lyme Disease IgM Ab Lyme IgM 23 kDa Band Lyme IgM 39 kDa Band Lyme IgM 41 kDa Band Influenza Type A (PCR) Influenza Type B (PCR) 03/11/20 03/11/20 03/11/20 19:39 19:39 20:11 WBC RBC Hgb Hct MCV MCH MCHC RDW Std Deviation RDW Coeff of [place] Plt Count MPV Immature Gran % (Auto) Neut % (Auto) Lymph % (Auto) [place] % (Auto) Eos % (Auto) Baso % (Auto) Immature Gran # (Auto) Neut # (Auto) Lymph # (Auto) [place] # (Auto) Eos # (Auto) Baso # (Auto) PT INR Sodium Potassium Chloride Carbon Dioxide Anion Gap BUN Creatinine Est Cr Clr Drug Dosing Est GFR ( Amer) Est GFR (Non-Af Amer) BUN/Creatinine Ratio Glucose Calcium Magnesium Total Bilirubin AST ALT Alkaline Phosphatase Troponin I Total Protein Albumin Globulin Albumin/Globulin Ratio Lipase Urine Color Urine Appearance Urine pH Ur Specific [place] Urine Protein Urine Glucose (UA) Urine Ketones Urine Blood Urine Nitrite Urine Bilirubin Urine Urobilinogen Ur Leukocyte Esterase Urine WBC (Auto) Urine RBC (Auto) U Hyaline Cast (Auto) U Epithel Cells (Auto) Urine Bacteria (Auto) Lyme Disease IgG Ab Negative Lyme IgG (Western Blot) Pending Lyme IgG 18 kDa Band Pending Lyme IgG 23 kDa Band Pending Lyme IgG 28 kDa Band Pending Lyme IgG 30 kDa Band Pending Lyme IgG 39 kDa Band Pending Lyme IgG 41 kDa Band Pending Lyme IgG 45 kDa Band Pending Lyme IgG 58 kDa Band Pending Lyme IgG 66 kDa Band Pending Lyme IgG 93 kDa Band Pending Lyme IgM Ab (WB) Pending Lyme Disease IgM Ab Positive A Lyme IgM 23 kDa Band Pending Lyme IgM 39 kDa Band Pending Lyme IgM 41 kDa Band Pending Influenza Type A (PCR) Neg for Influ A Influenza Type B (PCR) Neg for Influ B 03/11/20 20:45 WBC RBC Hgb Hct MCV MCH MCHC RDW Std Deviation RDW Coeff of [place] Plt Count MPV Immature Gran % (Auto) Neut % (Auto) Lymph % (Auto) [place] % (Auto) Eos % (Auto) Baso % (Auto) Immature Gran # (Auto) Neut # (Auto) Lymph # (Auto) [place] # (Auto) Eos # (Auto) Baso # (Auto) PT 10.8 INR 1.0 Sodium Potassium Chloride Carbon Dioxide Anion Gap BUN Creatinine Est Cr Clr Drug Dosing Est GFR ( Amer) Est GFR (Non-Af Amer) BUN/Creatinine Ratio Glucose Calcium Magnesium Total Bilirubin AST ALT Alkaline Phosphatase Troponin I Total Protein Albumin Globulin Albumin/Globulin Ratio Lipase Urine Color Urine Appearance Urine pH Ur Specific [place] Urine Protein Urine Glucose (UA) Urine Ketones Urine Blood Urine Nitrite Urine Bilirubin Urine Urobilinogen Ur Leukocyte Esterase Urine WBC (Auto) Urine RBC (Auto) U Hyaline Cast (Auto) U Epithel Cells (Auto) Urine Bacteria (Auto) Lyme Disease IgG Ab Lyme IgG (Western Blot) Lyme IgG 18 kDa Band Lyme IgG 23 kDa Band Lyme IgG 28 kDa Band Lyme IgG 30 kDa Band Lyme IgG 39 kDa Band Lyme IgG 41 kDa Band Lyme IgG 45 kDa Band Lyme IgG 58 kDa Band Lyme IgG 66 kDa Band Lyme IgG 93 kDa Band Lyme IgM Ab (WB) Lyme Disease IgM Ab Lyme IgM 23 kDa Band Lyme IgM 39 kDa Band Lyme IgM 41 kDa Band Influenza Type A (PCR) Influenza Type B (PCR) Medications Administered Current Inpatient Medications Ioversol (Optiray 320 100ml) 93 ml IV ONCE PRN PRN Reason: Interaction Checking Stop: 03/15/20 20:56 Last Admin: 03/11/20 20:58 Dose: 93 ml Documented by: Code Status & VTE Plan Code Status FULL Supervising Physician Co-Signing Physician Notes Attending addendum: I have physically seen this patient, have supervised the medical residents activities, and agree with the H&P unless as otherwise noted. Assessment and Plan: 3 mm left ureteral obstructing stone/moderate left hydronephrosis- N.p.o. NSS + KCl 20 mEq at 100 mils per hour Zofran 4 mg IV every 6 hours PRN Follow urine culture sensitivity Ceftriaxone 1 g IV daily Acetaminophen 650 mg p.o. every 6 hours as needed mild pain or temperature Morphine sulfate 2 mg IV every 4 hours as needed moderate pain Dilaudid 0.5 mg IV every 4 hours as needed severe pain Consult urology Bipolar disorder- Continue Seroquel 50 mg At bedtime Fibromyalgia- Continue gabapentin 400 mg p.o. 3 times daily Migraine headache- Sumatriptan succinate 100 mg p.o. daily PRN as directed. Remaining orders and notations as noted. Resident Activity Tracking Resident Involvement: Resident Care Provided Care Provided: Adult Hospital Medicine
[2020-03-12] MEDS ORDERED: MoRPHine SULFATE 2 MG/ML CARP IV PRN (03:02)
[2020-03-12] MEDS ORDERED: ACETAMINOPHEN 325 MG TAB PO PRN (03:02)
[2020-03-12] MEDS ORDERED: ONDANSETRON INJ 2 MG/ML 2 ML VIAL IV PRN ×2 (03:02→12:23)
[2020-03-12] MEDS ORDERED: ALUMINUM/MAGNESIUM SUSP 30 ML UDC PO PRN (03:02)
[2020-03-12] MEDS ORDERED: HYDROmorphone INJ 0.5 MG/0.5 ML SYR IV PRN (03:02)
[2020-03-12] MEDS: SUMAtriptan succinate 100 MG TAB PO PRN (04:42)
[2020-03-12] MEDS: NSS + 20MEQ KCL 20 MEQ/1,000 ML BAG IV SCH ×3 (04:42→23:43)
[2020-03-12 07:37] LABS: Basophils # (auto) 0.03 K/uL (0-0.2); Basophils % (auto) 0.9 %; Eosinophils # (auto) 0.05 K/uL (0-0.5); Eosinophils % (auto) 1.5 %; Hematocrit (blood only) 35.6 % (37-47); Hemoglobin 11.9 g/dL (12.0-16.0); Lymphocytes # (auto) 0.76 K/uL (1.2-3.4); Lymphocytes % (auto) 23.5 %; Mean Corpuscular Hemoglobin 28.9 pg (25-34); Mean Corpuscular Hgb Conc 33.4 g/dL (32-36); Mean Corpuscular Volume 86.4 fL (80-100); Mean Platelet Volume 9.9 fL (7.4-10.4); Monocytes # (auto) 0.62 K/uL (0.11-0.59); Monocytes % (auto) 19.1 %; Neutrophils # (auto) 1.78 K/uL (1.4-6.5); Platelet Count 135 K/uL (130-400); RDW Coefficient of Variation 12.7 % (11.5-14.5); RDW Standard Deviation 40.7 fL (36.4-46.3); Red Blood Count 4.12 M/uL (4.2-5.4); White Blood Count 3.24 K/uL (4.8-10.8)
[2020-03-12 08:16] LABS: BUN Creatinine Ratio 9.5 (10-20); Calcium 8.6 mg/dl (8.5-10.1); Creatinine Clr Calc Pharmacy 98.4 ml/min; Est GFR (African American) 112.7; Est GFR (Non-African American) 97.2; Potassium 3.4 mmol/L (3.5-5.1)
[2020-03-12] MEDS: GABAPENTIN 400 MG CAP PO SCH ×3 (09:38→20:18)
[2020-03-12] MEDS: ENOXAPARIN INJ 40 MG/0.4 ML SYR SQ SCH ×2 (09:40→09:46)
[2020-03-12] MEDS: DOXYCYCLINE HYCLATE 100 MG in DEXTROSE 5% 100 ML IV SCH ×2 (10:35→21:36)
--- NOTE | 2020-03-12 11:22 | Electrocardiogram Report ---
Test Reason : Blood Pressure : / mmHG Vent. Rate : 071 BPM Atrial Rate : 071 BPM P-R Int : 150 ms QRS Dur : 100 ms QT Int : 388 ms P-R-T Axes : 036 048 058 degrees QTc Int : 421 ms Sinus rhythm with occasional Premature ventricular complexes Incomplete right bundle branch block Borderline ECG When compared with ECG of 10-DEC-2009 17:13, Premature ventricular complexes are now Present Confirmed by Stepan Fernandes ([id number]) on 03/12/2020 11:22:44 AM Referred By: REFERRED SELF Confirmed By:Stepan Fernandes
[2020-03-12] MEDS ORDERED: MIDAZOLAM HCL 1 MG/ML 2ML VIAL ONE (11:51)
[2020-03-12] MEDS ORDERED: PROPOFOL IV EMULSION 10 MG/ML 20 ML VIAL IV ONE ×2 (11:51→12:49)
[2020-03-12] MEDS ORDERED: fentaNYL citrate 100 MCG/2 ML VIAL ONE (11:52)
--- NOTE | 2020-03-12 11:59 | Urology Consultation ---
Date of Consultation March 12, 2020 Assessment & Plan (1) Nephrolithiasis: Risks and benefits discussed at length for procedure. These include bleeding, infection, injury to surrounding tissues or organs, and risks associated with anesthesia. Patient states understanding and agrees to proceed. Will sign consent and schedule. Plan for cystoscopy with left stent placement. Patient having ill feelings with fevers at home and continued pain. 3mm UVJ stone. History of Present Illness Attending Physician: Chanell Escoto MD History of Present Illness New consultation for patient with stone, discomfort, obstruction, and ill feelings. Patient developed sudden onset of pain into flank going down and radiating into groin and back in waves comes and goes. Can be severe at times. Discussed and reviewed patient's family history for any history of stone disease. Also, discussed patient's medical surgery history especially related to any history of urinary issues or stone disease. Patient was admitted and is undergoing observation. Allergies Allergy/AdvReac Type Severity Reaction Status Date / Time No Known Allergies Allergy Mild Verified 03/11/20 23:16 Home Medications Home Medications Medication Instructions Recorded Confirmed Type gabapentin 400 mg capsule 400 mg PO TID #90 cap 12/14/19 03/11/20 Rx quetiapine 50 mg tablet 50 mg PO HS #30 tab 01/08/20 03/11/20 Rx sumatriptan succinate 100 mg tablet See Rx Instructions PO .COMPLEX 02/03/20 03/11/20 Rx #30 tab Patient History Surgical History History of knee surgery History of tonsillectomy Family History Father Kidney disease Mother Breast cancer Grandmother (Maternal) Breast cancer Aunt Breast cancer Social History Preferred Language: Tajik Communication Ability: Effective Batch Maker Required: No Beliefs That Will Affect Care: None marital status: Current Living Situation: Spouse Other Information That Helps Us Care for You: No Feels Safe at Home: Yes Safety Concerns: Feels Safe At This Time Smoking Status: Former smoker Hx Alcohol Use: No Hx Substance Use: No Seatbelt Use: always Review of Systems Review of Systems: All systems reviewed & are unremarkable except as noted in HPI & below Physical Exam Physical Exam: General: Alert and oriented x 3 in no acute distress. Patient is well nourished and well kept. HEENT: Normocephalic Atraumatic. Inspection normal. Cranial Nerves 2-12 Grossly intact. Nares are clear. Neck is supple. Normal inspection of face. Normal inspection of neck. Neurologic: No deficits on inspection. Baseline for motor function and sensory. Psychologic: Normal affect. Anxious Respiratory: Nonlabored. No use of accessory muscles. No tachypnea or dyspnea. Cardiovascular: No tachycardia Skin: Dooms and Dry. No rashes or visible lesions. Extremities: Moving without issues. No motor deficits on inspection Lymphatics: No edema Abdomen: Soft Non-distended. No acites. No rebound or guarding. Results & Data Vital Signs (Past 12 Hours) Vital Signs Temp Pulse Pulse Resp BP BP BP 03/12/20 08:12 37.0 C 76 16 126/76 03/12/20 02:45 36.9 C 67 18 119/70 03/12/20 02:40 111/60 03/12/20 00:28 112/56 L Pulse Ox 03/12/20 08:12 95 03/12/20 02:45 97 03/12/20 02:40 97 03/12/20 00:28 98 PG Care Time/CCT Total # of Minutes Spent Total Time Spent with Patient: Total time spent is greater than 50% in coordination of care (as documented) at patient's floor/unit and/or counseling patient: Coding Level of Care Code 49972 Inpt Consult Level 5 Diagnoses Nephrolithiasis N20.0
--- NOTE | 2020-03-12 12:16 | Anesthesiology Consultation ---
Date of Service March 12, 2020 Assessment & Plan ASA ASA3 Proposed Anesthesia Anesthesia Type: MAC Risk / Benefits Reviewed With: PT / POA / Parent / Guardian, Accepts Plan and Informed Consent Obtained Additional Comments: pt tested on 03/10/20 for possible covid. I confirmed with the hospatilist for [facility] that the test was negative in their system. History Surgery Operation Date: 03/12/20 13:00 Proposed Procedures p Ureteral Stent Insertion/Removal - Henry Childress, Height/Weight Height: 5 ft 10 in Weight: 68 kg Allergies Allergy/AdvReac Type Severity Reaction Status Date / Time No Known Allergies Allergy Mild Verified 03/11/20 23:16 Medications Home Medications Medication Instructions Recorded Confirmed Last Taken gabapentin 400 mg capsule 400 mg PO TID #90 cap 12/14/19 03/11/20 Unknown quetiapine 50 mg tablet 50 mg PO HS #30 tab 01/08/20 03/11/20 Unknown sumatriptan succinate 100 mg tablet See Rx Instructions PO .COMPLEX 02/03/20 Unknown #30 tab Active Medications Generic Name Dose Route Start Last Admin Trade Name Freq PRN Reason Stop Dose Admin Enoxaparin Sodium 40 mg 03/12/20 09:00 03/12/20 09:46 Lovenox SQ 04/11/20 08:59 Not Given QAM LYNN Gabapentin 400 mg 03/12/20 09:00 03/12/20 09:38 Neurontin PO 04/11/20 08:59 400 mg TID LYNN Administration Potassium Chloride/Sodium Chloride 20 meq in 1,000 mls @ 100 mls/hr 03/12/20 04:00 03/12/20 04:42 Normal Saline W/20 Meq Kcl IV 04/11/20 03:59 100 mls/hr .Q10H LYNN Administration Doxycycline Hyclate 100 mg/ 110 mls @ 50 mls/hr 03/12/20 10:00 03/12/20 10:35 Dextrose IV 03/26/20 09:59 50 mls/hr Q12H LYNN Administration Protocol Sumatriptan Succinate 100 mg 03/12/20 03:02 03/12/20 04:42 Imitrex PO 04/11/20 03:01 100 mg DAILY PRN Administration Migraine Headache NPO Date Last Intake of Fluids: 03/12/20 Time Last Intake of Fluids: 00:00 Date Last Intake of Solids: 03/12/20 Time Last Intake of Solids: 00:00 Exercise / Class Metabolic Activity II 4-5 Yardwork/Stairs/Walk up hill Past Family History Family History Father Kidney disease Mother Breast cancer Grandmother (Maternal) Breast cancer Aunt Breast cancer Past Surgical History Surgical History History of knee surgery History of tonsillectomy Past Anesthesia History No Hx of Anesthesia Complications and No Family Hx of Anesthesia Complications History of PONV No Hx of PONV and No Hx of Motion Sickness Social History Smoking Status: Former smoker Hx Alcohol Use: No Alcohol type: beer and wine alcohol intake frequency: a few times a month Hx Substance Use: No Review of Systems denies cough/ colds/ chest pain/ SOB/ CHANTAL recent fever, recent covid negative test Constitutional: no fever and no chills Respiratory: no cough and no dyspnea denies CHANTAL Cardiovascular: no chest pain and no dyspnea on exertion Physical Exam Vital Signs Last Vital Signs Temp 37.0 C 03/12/20 08:12 Pulse 76 03/12/20 08:12 Resp 16 03/12/20 08:12 BP 126/76 03/12/20 08:12 Pulse Ox 95 03/12/20 08:12 ENMT Mouth: + dentures and + poor dentition; no TMJ abnormality and no dentition abnormality Thyromental Distance: > or= 3.5 Finger Breadths Mallampati Class: III Neck neck extension not limited Respiratory normal respiratory effort; no respiratory distress Auscultation: lungs clear to auscultation bilaterally Cardiovascular Rate/Rhythm: regular rate and regular rhythm Neurologic moves all extremities Psychiatric Orientation: alert and oriented x 3 Testing Laboratory Results 03/12/20 06:54 03/12/20 06:54 PT 10.8 Seconds (9.0-12.0) 03/11/20 20:45 INR 1.0 (0.9-1.1) 03/11/20 20:45 Urine Color Yellow 03/11/20 19:39 Urine Appearance Clear (Clear) 03/11/20 19:39 Urine pH 6.0 (4.5-7.5) 03/11/20 19:39 Ur Specific [place] 1.008 (1.000-1.030) 03/11/20 19:39 Urine Protein Negative (Negative) 03/11/20 19:39 Urine Glucose (UA) Negative (Negative) 03/11/20 19:39 Urine Ketones Negative (Negative) 03/11/20 19:39 Urine Nitrite Negative (Negative) 03/11/20 19:39 Ur Leukocyte Esterase 2+ (Negative) H 03/11/20 19:39 Urine WBC (Auto) 10-30 /hpf (0-5) H 03/11/20 19:39 Urine RBC (Auto) 0-4 /hpf (0-4) 03/11/20 19:39 U Hyaline Cast (Auto) 0 /lpf (0-5) 03/11/20 19:39 U Epithel Cells (Auto) 5-10 /lpf (0-5) H 03/11/20 19:39 Urine Bacteria (Auto) Negative (Negative) 03/11/20 19:39 03/11/20 19:39 Urine Culture - Preliminary Urine,Clean Catch Gram negative bacilli
[2020-03-12] MEDS ORDERED: fentaNYL citrate 100 MCG/2 ML VIAL IV PRN (12:23)
[2020-03-12] MEDS ORDERED: ePHEDrine sulfate 50 MG/ML AMP IV PRN (12:23)
[2020-03-12] MEDS ORDERED: ATROPINE SULFATE 0.1 MG/ML 10ML SYR IV PRN (12:23)
[2020-03-12] MEDS ORDERED: IOTHALAMATE MEGLUMINE II 17.2% 250 ML VIAL ONE (12:49)
--- NOTE | 2020-03-12 12:56 | Operative Report ---
PG Post Operative Report Pre & Post Diagnosis Obstructing Distal Left Ureteral Stone Same Operation Date: 03/12/20 13:00 <No data on this case meets the specified criteria> I identified the patient and participated in the time-out.: Yes Procedure Operation Date: 03/12/20 13:00 Actual Procedures p Ureteral Stent Insertion, Retrograde Pyelogram, urine aspiration, and stent placement (Left) - Henry Childress, Surgeon Henry Childress, II, DO Talent Associate None Estimated Blood Loss 1 Findings Consistent with Post-Op Diagnosis Stent placed in good position. Specimens None Drains 5 Fr Multilength Anesthesia Type MAC Complications none Disposition Disposition: Recovery Room Indications Patient with obstruction. Risks and benefits discussed at length. Description of Procedure Patient was consented and brought back to the operating room. Patient was placed under anesthesia in the supine position and moved to the dorsal lithotomy posit ion. Patient was prepped and draped in the regular sterile fashion. A time out was completed. A 30degree Cystoscope was placed into the bladder and the entire bladder was examined. The UO's were identified. The UO was cannulized with a catheter, urine was aspirated, and a retrograde pyelogram was completed. Urine was sent for culture. A wire was then placed. With the wire in place, a 5 Fr Double J stent was placed. It was confirmed with fluoroscopy. With the stent in place, the bladder was emptied. The scope was removed. The patient was cleaned, aroused from anesthesia, and transferred to the pacu in stable condition having tolerated the procedure well with no complications. I was present and participated in all aspects of the procedure. The patient will be monitored in the PACU until transferred. I attest to the content of the Intraoperative Record and any orders documented therein. Any exceptions are noted below.
--- NOTE | 2020-03-12 13:11 | Fluoroscopy Report ---
FL retrograde includes kub CLINICAL HISTORY: STENT REMOVAL COMPARISON STUDY: FLUOROSCOPY TIME: 15 seconds NUMBER OF FLUOROSCOPIC IMAGES: 1 FINDINGS: Image intensifier support for left ureteral stent placement IMPRESSION: Image intensifier support for a left ureteral stent placement ACT 112: Negative or not required by law. The above report was generated using voice recognition software. It may contain grammatical, syntax or spelling errors. Electronically signed by: Dano Hernandes M.D. 03/12/2020 1:10 PM
--- NOTE | 2020-03-12 13:26 | Anesthesiology Progress Note ---
Date of Service March 12, 2020 Anesthesia Post Procedure Vital Signs Vital Signs: Temp Pulse Pulse Pulse Resp BP BP 03/12/20 13:20 36.8 C 54 L 15 126/60 03/12/20 13:10 59 L 14 142/68 H 03/12/20 13:04 36.8 C 68 12 131/65 03/12/20 08:12 37.0 C 76 16 126/76 03/12/20 02:45 36.9 C 67 18 03/12/20 02:40 111/60 03/12/20 00:28 112/56 L 03/11/20 22:30 90 17 125/59 L 03/11/20 22:00 72 16 121/65 03/11/20 21:21 77 22 03/11/20 20:06 76 23 03/11/20 18:07 37.4 C 95 H 20 127/73 BP Pulse Ox 03/12/20 13:20 97 03/12/20 13:10 100 03/12/20 13:04 100 03/12/20 08:12 95 03/12/20 02:45 119/70 97 03/12/20 02:40 97 03/12/20 00:28 98 03/11/20 22:30 96 03/11/20 22:00 96 03/11/20 21:21 131/61 95 03/11/20 20:06 118/79 98 03/11/20 18:07 94 Pain Intensity Left Abdomen: Pain Intensity: 3 Transfer of Care Handoff Completed per policy Notes Mental Status: alert / awake / arousable and participated in evaluation Patient Amnestic to Procedure: Yes Nausea / Vomiting: adequately controlled Pain: adequately controlled Airway Patency, RR, SpO2: stable & adequate BP & HR: stable & adequate Hydration State: stable & adequate Anesthetic Complications: no major complications apparent and Pt Satisfied with anesthetic care
--- NOTE | 2020-03-12 14:45 | Hospitalist Progress Note ---
Date of Service March 12, 2020 Assessment & Plan (1) Ureterolithiasis: This patient is a 55-year-old female with a PMH of fibromyalgia, bipolar disorder, and migraine headaches, who presented with left lower abdominal pain and was found to have left-sided ureterolithiasis with moderate hydronephrosis and UTI with signs of acute pyelonephritis on CT of the abdomen/pelvis. She had fever for 4 days prior to admission as high as 102.9 associated with the abdominal pain and no other symptoms other than fatigue and confusion. -Consulted urology for urgent stent placement for left ureterolithiasis in the setting of urinary tract infection-placed today on 03/12 -Pain control as needed -Treated with Rocephin for UTI -Follow urine culture -Follow basic metabolic panel -Continue normal saline with 20 mEq potassium chloride at 100 mL's per hour (2) Acute pyelonephritis: As above, with evidence of left-sided acute pyelonephritis on CT imaging plus abnormal urinalysis and with ureterolithiasis in the setting of fever x4 days -Continue Rocephin -Follow urine cultures and blood cultures (3) Fever: Fever as high as 102.9 at home prior to admission x4 days with acute metabolic encephalopathy with confusion No fevers here since admission Most likely due to acute pyelonephritis, however also frequently [place] and has a history of Lyme disease. A Lyme titer was drawn in the ER which is positive for IgM She also has leukopenia and mild thrombocytopenia, with normal liver enzymes- however could also potentially have anaplasmosis? -Continue treating with Rocephin for pyelonephritis as above -Check Anaplasma DNA PCR and peripheral smear for inclusion bodies -Start IV doxycycline 100 mg twice daily empirically in case of anaplasmosis -Follow-up on Lyme Western blot-her Lyme IgM could be positive from a previous infection even if it was many years ago (4) Thrombocytopenia: Platelets down to 135, as above, could be from acute infection including pyelonephritis or tickborne illness -Follow CBC (5) Leukopenia: As above, could be in the setting of acute infection including anaplasmosis or just from pyelonephritis WBC count down to 3.2 today -Follow CBC in the morning -Treating with antibiotics as above (6) Fibromyalgia: Stable -Continue gabapentin 40 mg p.o. 3 times daily (7) Migraine headache: Sumatriptan as needed, no active issues (8) Bipolar disorder: Continue home Seroquel (9) History of Lyme disease: As noted above (10) Hypokalemia: Mildly low today Replacing and IV fluids -Follow BMP in the morning (11) DVT prophylaxis: Hold Lovenox for today given procedure -Start Lovenox 40 mg SQ every morning tomorrow Disposition-remain in the hospital Possible discharged home tomorrow if doing better Admission and Anticipated Discharge Date Admission Date: March 12, 2020 Subjective Patient returned recently from the operating room when I saw her. She was having some bladder spasms and pain from the stent. She denied any chest pain or shortness of breath, no nausea or abdominal pain otherwise. I discussed the case with Dr. Childress of urology on the phone today Review of Systems Review of Systems: All systems reviewed & are unremarkable except as noted in HPI & below (Denies joint pains or rashes, no headache or neck pain) Physical Exam Constitutional: WD/WN, vitals as above Eyes: + anicteric sclerae Neck: trachea midline, no thyromegaly Respiratory: normal respiratory effort, lungs clear to auscultation Cardiovascular: RRR, no murmur, no edema Chest (Breasts): Chest: normal inspection of chest Gastrointestinal (Abdomen): normal bowel sounds, soft, nontender, no hepatosplenomegaly Musculoskeletal: Extremities: extremities normal to inspection; no cyanosis and no clubbing Skin: no rashes, warm and dry Neurologic: moves all extremities and awake; no focal motor deficits Psychiatric: A+Ox3, euthymic affect Lymphatic: no lymphedema Results & Data Results & Data ([facility]) Vital Signs (Past 12 Hours) Vital Signs Temp Pulse Pulse Resp BP Pulse Ox 03/12/20 14:00 37.4 C 58 L 18 124/73 95 03/12/20 13:30 37.4 C 61 18 127/75 96 03/12/20 13:20 36.8 C 54 L 15 126/60 97 03/12/20 13:10 59 L 14 142/68 H 100 03/12/20 13:04 36.8 C 68 12 131/65 100 03/12/20 08:12 37.0 C 76 16 126/76 95 Laboratory Results 03/12/20 03/12/20 03/12/20 Range/Units 09:56 09:56 06:54 WBC (4.8-10.8) K/uL RBC (4.2-5.4) M/uL Hgb (12.0-16.0) g/dL Hct (37-47) % MCV (80-100) fL MCH (25-34) pg MCHC (32-36) g/dL RDW Std Deviation (36.4-46.3) fL RDW Coeff of [place] (11.5-14.5) % Plt Count (130-400) K/uL MPV (7.4-10.4) fL Immature Gran % (Auto) % Neut % (Auto) % Lymph % (Auto) % [place] % (Auto) % Eos % (Auto) % Baso % (Auto) % Immature Gran # (Auto) (0.00-0.02) K/uL Neut # (Auto) (1.4-6.5) K/uL Lymph # (Auto) (1.2-3.4) K/uL [place] # (Auto) (0.11-0.59) K/uL Eos # (Auto) (0-0.5) K/uL Baso # (Auto) (0-0.2) K/uL Absolute Nucleated RBC (0-0) K/uL Nucleated RBC % (auto) % Peripher Smr Path Cons Cancelled PT (9.0-12.0) Seconds INR (0.9-1.1) Sodium 141 (136-145) mmol/L Potassium 3.4 L (3.5-5.1) mmol/L Chloride 108 H (98-107) mmol/L Carbon Dioxide 27 (21-32) mmol/L Anion Gap 6.0 (3-11) BUN 7 (7-18) mg/dl Creatinine 0.71 (0.6-1.2) mg/dl Est Cr Clr Drug Dosing 98.4 ml/min Est GFR ( Amer) 112.7 Est GFR (Non-Af Amer) 97.2 BUN/Creatinine Ratio 9.5 L (10-20) Glucose 95 (70-99) mg/dl Calcium 8.6 (8.5-10.1) mg/dl Magnesium (1.8-2.4) mg/dl Total Bilirubin (0.2-1) mg/dl AST (15-37) U/L ALT (12-78) U/L Alkaline Phosphatase (45-117) U/L Troponin I (0-0.045) ng/ml Total Protein (6.4-8.2) gm/dl Albumin (3.4-5.0) gm/dl Globulin (2.5-4.0) gm/dl Albumin/Globulin Ratio (0.9-2) Lipase (73-393) U/L Urine Color Urine Appearance (Clear) Urine pH (4.5-7.5) Ur Specific [place] (1.000-1.030) Urine Protein (Negative) Urine Glucose (UA) (Negative) Urine Ketones (Negative) Urine Blood (Negative) Urine Nitrite (Negative) Urine Bilirubin (Negative) Urine Urobilinogen (Negative) Ur Leukocyte Esterase (Negative) Urine WBC (Auto) (0-5) /hpf Urine RBC (Auto) (0-4) /hpf U Hyaline Cast (Auto) (0-5) /lpf U Epithel Cells (Auto) (0-5) /lpf Urine Bacteria (Auto) (Negative) A. phagocytophilum DNA Pending Lyme Disease IgG Ab (Negative) Lyme IgG (Western Blot) Lyme IgG 18 kDa Band Lyme IgG 23 kDa Band Lyme IgG 28 kDa Band Lyme IgG 30 kDa Band Lyme IgG 39 kDa Band Lyme IgG 41 kDa Band Lyme IgG 45 kDa Band Lyme IgG 58 kDa Band Lyme IgG 66 kDa Band Lyme IgG 93 kDa Band Lyme IgM Ab (WB) Lyme Disease IgM Ab (Negative) Lyme IgM 23 kDa Band Lyme IgM 39 kDa Band Lyme IgM 41 kDa Band Influenza Type A (PCR) (Neg) Influenza Type B (PCR) (Neg) 03/12/20 03/11/20 03/11/20 Range/Units 06:54 20:45 20:11 WBC 3.24 L (4.8-10.8) K/uL RBC 4.12 L (4.2-5.4) M/uL Hgb 11.9 L (12.0-16.0) g/dL Hct 35.6 L (37-47) % MCV 86.4 (80-100) fL MCH 28.9 (25-34) pg MCHC 33.4 (32-36) g/dL RDW Std Deviation 40.7 (36.4-46.3) fL RDW Coeff of [place] 12.7 (11.5-14.5) % Plt Count 135 (130-400) K/uL MPV 9.9 (7.4-10.4) fL Immature Gran % (Auto) 0.0 % Neut % (Auto) 55.0 % Lymph % (Auto) 23.5 % [place] % (Auto) 19.1 % Eos % (Auto) 1.5 % Baso % (Auto) 0.9 % Immature Gran # (Auto) 0.00 (0.00-0.02) K/uL Neut # (Auto) 1.78 (1.4-6.5) K/uL Lymph # (Auto) 0.76 L (1.2-3.4) K/uL [place] # (Auto) 0.62 H (0.11-0.59) K/uL Eos # (Auto) 0.05 (0-0.5) K/uL Baso # (Auto) 0.03 (0-0.2) K/uL Absolute Nucleated RBC 0.00 (0-0) K/uL Nucleated RBC % (auto) 0.0 % Peripher Smr Path Cons Pending PT 10.8 (9.0-12.0) Seconds INR 1.0 (0.9-1.1) Sodium (136-145) mmol/L Potassium (3.5-5.1) mmol/L Chloride (98-107) mmol/L Carbon Dioxide (21-32) mmol/L Anion Gap (3-11) BUN (7-18) mg/dl Creatinine (0.6-1.2) mg/dl Est Cr Clr Drug Dosing ml/min Est GFR ( Amer) Est GFR (Non-Af Amer) BUN/Creatinine Ratio (10-20) Glucose (70-99) mg/dl Calcium (8.5-10.1) mg/dl Magnesium (1.8-2.4) mg/dl Total Bilirubin (0.2-1) mg/dl AST (15-37) U/L ALT (12-78) U/L Alkaline Phosphatase (45-117) U/L Troponin I (0-0.045) ng/ml Total Protein (6.4-8.2) gm/dl Albumin (3.4-5.0) gm/dl Globulin (2.5-4.0) gm/dl Albumin/Globulin Ratio (0.9-2) Lipase (73-393) U/L Urine Color Urine Appearance (Clear) Urine pH (4.5-7.5) Ur Specific [place] (1.000-1.030) Urine Protein (Negative) Urine Glucose (UA) (Negative) Urine Ketones (Negative) Urine Blood (Negative) Urine Nitrite (Negative) Urine Bilirubin (Negative) Urine Urobilinogen (Negative) Ur Leukocyte Esterase (Negative) Urine WBC (Auto) (0-5) /hpf Urine RBC (Auto) (0-4) /hpf U Hyaline Cast (Auto) (0-5) /lpf U Epithel Cells (Auto) (0-5) /lpf Urine Bacteria (Auto) (Negative) A. phagocytophilum DNA Lyme Disease IgG Ab (Negative) Lyme IgG (Western Blot) Lyme IgG 18 kDa Band Lyme IgG 23 kDa Band Lyme IgG 28 kDa Band Lyme IgG 30 kDa Band Lyme IgG 39 kDa Band Lyme IgG 41 kDa Band Lyme IgG 45 kDa Band Lyme IgG 58 kDa Band Lyme IgG 66 kDa Band Lyme IgG 93 kDa Band Lyme IgM Ab (WB) Lyme Disease IgM Ab (Negative) Lyme IgM 23 kDa Band Lyme IgM 39 kDa Band Lyme IgM 41 kDa Band Influenza Type A (PCR) Neg for Influ A (Neg) Influenza Type B (PCR) Neg for Influ B (Neg) 03/11/20 03/11/20 03/11/20 Range/Units 19:39 19:39 19:39 WBC (4.8-10.8) K/uL RBC (4.2-5.4) M/uL Hgb (12.0-16.0) g/dL Hct (37-47) % MCV (80-100) fL MCH (25-34) pg MCHC (32-36) g/dL RDW Std Deviation (36.4-46.3) fL RDW Coeff of [place] (11.5-14.5) % Plt Count (130-400) K/uL MPV (7.4-10.4) fL Immature Gran % (Auto) % Neut % (Auto) % Lymph % (Auto) % [place] % (Auto) % Eos % (Auto) % Baso % (Auto) % Immature Gran # (Auto) (0.00-0.02) K/uL Neut # (Auto) (1.4-6.5) K/uL Lymph # (Auto) (1.2-3.4) K/uL [place] # (Auto) (0.11-0.59) K/uL Eos # (Auto) (0-0.5) K/uL Baso # (Auto) (0-0.2) K/uL Absolute Nucleated RBC (0-0) K/uL Nucleated RBC % (auto) % Peripher Smr Path Cons PT (9.0-12.0) Seconds INR (0.9-1.1) Sodium (136-145) mmol/L Potassium (3.5-5.1) mmol/L Chloride (98-107) mmol/L Carbon Dioxide (21-32) mmol/L Anion Gap (3-11) BUN (7-18) mg/dl Creatinine (0.6-1.2) mg/dl Est Cr Clr Drug Dosing ml/min Est GFR ( Amer) Est GFR (Non-Af Amer) BUN/Creatinine Ratio (10-20) Glucose (70-99) mg/dl Calcium (8.5-10.1) mg/dl Magnesium (1.8-2.4) mg/dl Total Bilirubin (0.2-1) mg/dl AST (15-37) U/L ALT (12-78) U/L Alkaline Phosphatase (45-117) U/L Troponin I (0-0.045) ng/ml Total Protein (6.4-8.2) gm/dl Albumin (3.4-5.0) gm/dl Globulin (2.5-4.0) gm/dl Albumin/Globulin Ratio (0.9-2) Lipase (73-393) U/L Urine Color Yellow Urine Appearance Clear (Clear) Urine pH 6.0 (4.5-7.5) Ur Specific [place] 1.008 (1.000-1.030) Urine Protein Negative (Negative) Urine Glucose (UA) Negative (Negative) Urine Ketones Negative (Negative) Urine Blood 1+ H (Negative) Urine Nitrite Negative (Negative) Urine Bilirubin Negative (Negative) Urine Urobilinogen Negative (Negative) Ur Leukocyte Esterase 2+ H (Negative) Urine WBC (Auto) 10-30 H (0-5) /hpf Urine RBC (Auto) 0-4 (0-4) /hpf U Hyaline Cast (Auto) 0 (0-5) /lpf U Epithel Cells (Auto) 5-10 H (0-5) /lpf Urine Bacteria (Auto) Negative (Negative) A. phagocytophilum DNA Lyme Disease IgG Ab Negative (Negative) Lyme IgG (Western Blot) Pending Lyme IgG 18 kDa Band Pending Lyme IgG 23 kDa Band Pending Lyme IgG 28 kDa Band Pending Lyme IgG 30 kDa Band Pending Lyme IgG 39 kDa Band Pending Lyme IgG 41 kDa Band Pending Lyme IgG 45 kDa Band Pending Lyme IgG 58 kDa Band Pending Lyme IgG 66 kDa Band Pending Lyme IgG 93 kDa Band Pending Lyme IgM Ab (WB) Pending Lyme Disease IgM Ab Positive A (Negative) Lyme IgM 23 kDa Band Pending Lyme IgM 39 kDa Band Pending Lyme IgM 41 kDa Band Pending Influenza Type A (PCR) (Neg) Influenza Type B (PCR) (Neg) 03/11/20 03/11/20 Range/Units 19:39 19:39 WBC 4.23 L (4.8-10.8) K/uL RBC 4.15 L (4.2-5.4) M/uL Hgb 12.2 (12.0-16.0) g/dL Hct 35.9 L (37-47) % MCV 86.5 (80-100) fL MCH 29.4 (25-34) pg MCHC 34.0 (32-36) g/dL RDW Std Deviation 40.5 (36.4-46.3) fL RDW Coeff of [place] 12.7 (11.5-14.5) % Plt Count 167 (130-400) K/uL MPV 10.1 (7.4-10.4) fL Immature Gran % (Auto) 0.0 % Neut % (Auto) 65.0 % Lymph % (Auto) 19.4 % [place] % (Auto) 14.2 % Eos % (Auto) 0.9 % Baso % (Auto) 0.5 % Immature Gran # (Auto) 0.00 (0.00-0.02) K/uL Neut # (Auto) 2.75 (1.4-6.5) K/uL Lymph # (Auto) 0.82 L (1.2-3.4) K/uL [place] # (Auto) 0.60 H (0.11-0.59) K/uL Eos # (Auto) 0.04 (0-0.5) K/uL Baso # (Auto) 0.02 (0-0.2) K/uL Absolute Nucleated RBC (0-0) K/uL Nucleated RBC % (auto) % Peripher Smr Path Cons PT (9.0-12.0) Seconds INR (0.9-1.1) Sodium 135 L (136-145) mmol/L Potassium 3.2 L (3.5-5.1) mmol/L Chloride 102 (98-107) mmol/L Carbon Dioxide 28 (21-32) mmol/L Anion Gap 5.0 (3-11) BUN 9 (7-18) mg/dl Creatinine 0.84 (0.6-1.2) mg/dl Est Cr Clr Drug Dosing 81.7 ml/min Est GFR ( Amer) 92.0 Est GFR (Non-Af Amer) 79.3 BUN/Creatinine Ratio 10.2 (10-20) Glucose 105 H (70-99) mg/dl Calcium 8.9 (8.5-10.1) mg/dl Magnesium 2.0 (1.8-2.4) mg/dl Total Bilirubin 0.5 (0.2-1) mg/dl AST 27 (15-37) U/L ALT 24 (12-78) U/L Alkaline Phosphatase 58 (45-117) U/L Troponin I < 0.015 (0-0.045) ng/ml Total Protein 7.2 (6.4-8.2) gm/dl Albumin 2.9 L (3.4-5.0) gm/dl Globulin 4.3 H (2.5-4.0) gm/dl Albumin/Globulin Ratio 0.7 L (0.9-2) Lipase 55 L (73-393) U/L Urine Color Urine Appearance (Clear) Urine pH (4.5-7.5) Ur Specific [place] (1.000-1.030) Urine Protein (Negative) Urine Glucose (UA) (Negative) Urine Ketones (Negative) Urine Blood (Negative) Urine Nitrite (Negative) Urine Bilirubin (Negative) Urine Urobilinogen (Negative) Ur Leukocyte Esterase (Negative) Urine WBC (Auto) (0-5) /hpf Urine RBC (Auto) (0-4) /hpf U Hyaline Cast (Auto) (0-5) /lpf U Epithel Cells (Auto) (0-5) /lpf Urine Bacteria (Auto) (Negative) A. phagocytophilum DNA Lyme Disease IgG Ab (Negative) Lyme IgG (Western Blot) Lyme IgG 18 kDa Band Lyme IgG 23 kDa Band Lyme IgG 28 kDa Band Lyme IgG 30 kDa Band Lyme IgG 39 kDa Band Lyme IgG 41 kDa Band Lyme IgG 45 kDa Band Lyme IgG 58 kDa Band Lyme IgG 66 kDa Band Lyme IgG 93 kDa Band Lyme IgM Ab (WB) Lyme Disease IgM Ab (Negative) Lyme IgM 23 kDa Band Lyme IgM 39 kDa Band Lyme IgM 41 kDa Band Influenza Type A (PCR) (Neg) Influenza Type B (PCR) (Neg) PG Care Time/CCT Total # of Minutes Spent Total Time Spent with Patient: Total time spent is greater than 50% in co ordination of care (as documented) at patient's floor/unit and/or counseling patient: Coding Level of Care Code 33232 Subseq Hosp Care Lvl 3 Diagnoses Ureterolithiasis N20.1 Acute pyelonephritis N10 Fever R50.9 Thrombocytopenia D69.6 Leukopenia D72.819 Fibromyalgia M79.7 Migraine headache G43.909 Bipolar disorder F31.9 History of Lyme disease Z86.19 Hypokalemia E87.6 DVT prophylaxis Z29.9
[2020-03-12] MEDS ORDERED: cefTRIAXone SODIUM 1,000 MG in DEXTROSE 5% 50 ML IV SCH (20:00)
[2020-03-12] MEDS ORDERED: QUETIAPINE FUMARATE 25 MG TABLET PO SCH (21:00)
[2020-03-12] MEDS ORDERED: IBUPROFEN 800 MG TAB PO PRN (22:03)
[2020-03-13] MEDS: SUMAtriptan succinate 100 MG TAB PO PRN (06:07)
[2020-03-13 06:22] LABS: Basophils # (auto) 0.03 K/uL (0-0.2); Basophils % (auto) 0.8 %; Eosinophils # (auto) 0.07 K/uL (0-0.5); Eosinophils % (auto) 1.8 %; Hematocrit (blood only) 32.6 % (37-47); Hemoglobin 10.5 g/dL (12.0-16.0); Immature Granulocytes # (auto) 0.01 K/uL (0.00-0.02); Immature Granulocytes % (auto) 0.3 %; Lymphocytes # (auto) 1.11 K/uL (1.2-3.4); Lymphocytes % (auto) 28.8 %; Mean Corpuscular Hemoglobin 28.3 pg (25-34); Mean Corpuscular Hgb Conc 32.2 g/dL (32-36); Mean Corpuscular Volume 87.9 fL (80-100); Mean Platelet Volume 9.7 fL (7.4-10.4); Monocytes # (auto) 0.64 K/uL (0.11-0.59); Monocytes % (auto) 16.6 %; Neutrophils % (auto) 51.7 %; Platelet Count 173 K/uL (130-400); RDW Coefficient of Variation 12.8 % (11.5-14.5); RDW Standard Deviation 41.3 fL (36.4-46.3); Red Blood Count 3.71 M/uL (4.2-5.4); White Blood Count 3.86 K/uL (4.8-10.8)
[2020-03-13 06:55] LABS: Albumin Level 2.4 gm/dl (3.4-5.0); BUN Creatinine Ratio 10.6 (10-20); Calcium 8.8 mg/dl (8.5-10.1); Creatinine Clr Calc Pharmacy 129.3 ml/min; Est GFR (African American) 124.9; Est GFR (Non-African American) 107.7; Potassium 3.6 mmol/L (3.5-5.1)
[2020-03-13 07:07] LABS: Albumin Globulin Ratio 0.7 (0.9-2); Bilirubin,Total 0.4 mg/dl (0.2-1); Globulin 3.5 gm/dl (2.5-4.0); Total Protein 5.9 gm/dl (6.4-8.2)
[2020-03-13] MEDS: ENOXAPARIN INJ 40 MG/0.4 ML SYR SQ SCH (08:05)
[2020-03-13] MEDS: GABAPENTIN 400 MG CAP PO SCH ×2 (08:05→13:11)
[2020-03-13] MEDS: NSS + 20MEQ KCL 20 MEQ/1,000 ML BAG IV SCH (08:42)
[2020-03-13] MEDS: DOXYCYCLINE HYCLATE 100 MG in DEXTROSE 5% 100 ML IV SCH (08:45)
--- NOTE | 2020-03-13 13:37 | Discharge Summary ---
Date of Service March 13, 2020 Admission HPI Per Admitting Provider 55-year-old female with past medical history fibromyalgia, bipolar depression, migraine headaches presents with concerns of left lower abdominal pain that began about 5 days ago on Saturday. No previous such occurrence like this ever before. Pain described as sharp and stabbing, intermittent. Made worse with movement, alleviated by lying down. At its worst 8 out of 10 on a pain scale. Currently about a 4 or a 5. Has tried Motrin and aspirin alternating for this with some relief. Associated chills and fevers as high as 102.9 F during the same time period. Patient with PCP appointment 03/10/2020 and was ordered COVID-19 testing as she had recently visited [place] the weekend prior versus acute URI. This was negative. Patient also with nausea and decreased appetite on Saturday. She thought this may have been due to food poisoning as she ate crab cakes the day prior. Patient also notes that she has had episodes where she felt confused. For instance, on Saturday night after meditating patient awoke and saw that it was 1230 but did not know if it was a.m. or p.m. and notes that she "was walking into [place]". Patient otherwise denies any actual vomiting, diarrhea, weakness, slurred speech, chest pain, shortness of breath, urinary symptoms of hematuria, urgency, frequency. Patient with no other acute concerns or complaints. Pertinent labs: Na 135, K 3.2, albumin 2.9. Otherwise largely unremarkable. U/A: 1+ blood, negative nitrite, 2+ LE, 1030 WBC, negative bacteria Head CT: There is no hemorrhage, mass effect, or evidence of acute territorial ischemia CXR: No active disease in the chest CT Abd/Pelvis: There is a 3 mm obstructing calculus at the left vesicoureteral junction which causes moderate left hydroureteronephrosis. There is an additional nonobstructing calculus in the left lower pole. There is heterogeneous enhancement of the left kidney, with urothelial thickening and enhancement noted in the left renal pelvis and ureter. This may be related to obstruction/hydronephrosis. ER coursep.o. acetaminophen 1 g, IV ceftriaxone 1 g, IV diphenhydramine 50 mg, IV Zofran, NSS 2 L Principal Diagnosis Acute pyelonephritis, left sided ureterolithiasis with moderate hydronephrosis, suspected tickborne illness Discharge Exam Constitutional WD/WN, vitals as above Eyes + anicteric sclerae Neck trachea midline, no thyromegaly Respiratory normal respiratory effort, lungs clear to auscultation Cardiovascular RRR, no murmur, no edema Chest (Breasts) Chest: normal inspection of chest Gastrointestinal (Abdomen) normal bowel sounds, soft, nontender, no hepatosplenomegaly Musculoskeletal Extremities: extremities normal to inspection; no cyanosis and no clubbing Skin no rashes, warm and dry Neurologic moves all extremities and awake; no focal motor deficits Psychiatric A+Ox3, euthymic affect Lymphatic no lymphedema Discharge Data Allergies Allergy/AdvReac Type Severity Reaction Status Date / Time No Known Allergies Allergy Mild Verified 03/11/20 23:16 Consultations 03/11/20 23:01 ED Decision to Admit Stat 03/12/20 03:02 Consult Urology Routine Procedures Performed Operation Date: 03/12/20 13:00 Actual Procedures p Ureteral Stent Insertion, Retrograde Pyelogram(Left) - Henry Childress, Ordered Studies 03/11/20 19:48 CT abd pelvis IV con only Stat 03/11/20 19:51 CT head/brain wo con Stat 03/12/20 10:30 FL retrograde includes kub Routine Chest x-ray Hospital Course (1) Ureterolithiasis: This patient is a 55-year-old female with a PMH of fibromyalgia, bipolar disorder, and migraine headaches, who presented with left lower abdominal pain and was found to have left-sided ureterolithiasis with moderate hydronephrosis and UTI with signs of acute pyelonephritis on CT of the abdomen/pelvis. She had fever for 4 days prior to admission as high as 102.9 associated with the abdominal pain and no other symptoms other than fatigue and confusion. -Consulted urology for urgent stent placement for left ureterolithiasis in the setting of urinary tract infection-placed on 03/12 -Pain control as needed with acetaminophen and ibuprofen -Treated with Rocephin for UTI and will discharged home on Keflex 5 mg p.o. tw ice daily x10 more days -Urine culture with no growth, however suspect UTI and acute pyelonephritis based on CT imaging and urinalysis -No evidence of renal failure -Received IV fluids Follow-up with urology within 1 week for stone management and stent removal (2) Acute pyelonephritis: As above, with evidence of left-sided acute pyelonephritis on CT imaging plus abnormal urinalysis and with ureterolithiasis in the setting of fever x4 days Fever may have been from tickborne illness, difficult to say. Urine culture is with no growth which is confounding the picture Received Rocephin and will send home with Keflex as above -Follow blood cultures after discharge-no growth to date (3) Fever: Fever as high as 102.9 at home prior to admission x4 days with acute metabolic encephalopathy with confusion No fevers here since admission in 48 hours Has some headaches and myalgias Most likely due to acute pyelonephritis, however also frequently [place] in [place] and has a history of Lyme disease. A Lyme titer was drawn in the ER which is positive for IgM She also has leukopenia and mild thrombocytopenia, with very minimally elevated liver enzymes-however could also potentially have anaplasmosis? -Treated with Rocephin for pyelonephritis as above which would also treat for Lyme -Check Anaplasma DNA PCR and peripheral smear for inclusion bodies-pending at the time of discharge -Started IV doxycycline 100 mg twice daily empirically in case of anaplasmosis and Lyme-continue p.o. doxycycline 100 mg twice daily x14 days after discharge -Follow-up on Lyme Western blot-her Lyme IgM could be positive from a previous infection even if it was many years ago PCP should follow-up on Lyme Western blot and anaplasmosis testing and peripheral smear after discharge within 1 week (4) Thrombocytopenia: Platelets down to 135 and now improved back to normal as above, could be from acute infection including pyelonephritis or tickborne illness (5) Leukopenia: As above, could be in the setting of acute infection including anaplasmosis or just from pyelonephritis WBC count down to 3.2 and now back up to 3.8 with treatment with antibiotics -Treating with antibiotics as above (6) Fibromyalgia: Stable -Continue gabapentin 40 mg p.o. 3 times daily (7) Migraine headache: Sumatriptan as needed Did have a headache here which is not her typical migraine was relieved with ibuprofen May be related to tickborne illness as above (8) Bipolar disorder: Continue home Seroquel (9) History of Lyme disease: As noted above (10) Hypokalemia: Mildly low -replaced (11) DVT prophylaxis: Lovenox 40 mg SQ every morning Disposition-stable for dc to home Total Time Total Time Spent Total Time Spent (In Minutes): >30 min Total Time Includes: Examination of the Patient, Discharge Planning and Medication Reconciliation Discharge Plan Discharge Items Patient Disposition: Home - Self-Care Reason For Visit: HYDRONEPHROSIS,CALCULUS Discharge Diagnosis: Ureterolithiasis, UTI, Suspected Tick-borne illness Condition on Discharge: Fair Activity: As commented below Lifting: No more than 5 pounds Bathing: No limitations Exercise/Sports: Wait until after follow-up appointment Weightbearing: Full weightbearing Non-emergency contact: Primary Care Provider and Urologist Call non-emergency contact if: you have any medication questions, your symptoms worsen, your pain is not controlled, your pain is worsening, your pain is unusual for you, your pain is concerning for you, you have a fever and your temperature is above 101 Follow-up/Referrals: Stephanie Amos MD [Primary Care Provider] - (Please follow up within 1-2 weeks.) Henry Childress DO [Physician] - (Please follow-up with Dr. Childress within 1 week-his office will typically contact you with the appointment date and time.) Diet: Regular Addtl Attending Provider Instructions: Please continue on doxycycline 100 mg by mouth twice daily for at least 14 days to treat for suspected Lyme disease as well as another tickborne illness called anaplasmosis. Your primary care physician can follow-up on final results of these tests and advise you on if you need to continue taking the doxycycline or not. You can continue to take Tylenol or ibuprofen as needed for headache and body aches or fevers. Please continue on Keflex 500 mg by mouth twice a day for the kidney/urinary tract infection. Your urine culture was not growing any bacteria at the time of discharge, however you should stay on this antibiotic until after your stent is removed. Please follow-up with urology to further address the kidney stone and for stent removal within 1 week. Please follow-up with your primary care physician within 1 week after discharge as well. Pending Studies at Discharge: Yes (Lyme Western blot, anaplasmosis DNA PCR, final blood cultures) Stand-Alone Forms: My [employer], Smoking Cessation Medications and DC Order Prescriptions: New acetaminophen 325 mg Tablet 650 mg PO Q4H PRN (Reason: fever or pain) Qty: 30 RF: 0 ibuprofen 800 mg Tablet 800 mg PO TID PRN (Reason: fever or pain) Qty: 10 RF: 0 doxycycline hyclate 100 mg tablet 100 mg PO BID 14 Days Qty: 28 RF: 0 cephalexin [Keflex] 500 mg capsule 500 mg PO BID 10 Days Qty: 20 RF: 0 Continued gabapentin 400 mg capsule 400 mg PO TID Qty: 90 RF: 5 quetiapine 50 mg tablet 50 mg PO HS Qty: 30 RF: 5 sumatriptan succinate 100 mg tablet See Rx Instructions PO .COMPLEX Qty: 30 RF: 5 Discharge Orders: Discharge Order (Routine); Ordered 03/13/20 Ordered By: Chanell Escoto Admission Data Admit Date/Time: 03/12/20 01:42 Attending Provider: Chanell Escoto Admit Provider: Russ Downey Primary Care Provider: Stephanie Amos Other Providers: Erik Tiwari ; Henry Childress Coding Level of Care Code D/C Day Management >30 mins Diagnoses Ureterolithiasis N20.1 Acute pyelonephritis N10 Fever R50.9 Thrombocytopenia D69.6 Leukopenia D72.819 Fibromyalgia M79.7 Migraine headache G43.909 Bipolar disorder F31.9 History of Lyme disease Z86.19 Hypokalemia E87.6 DVT prophylaxis Z29.9
--- NOTE | 2020-03-13 14:07 | Urology Progress Note ---
Date of Service March 13, 2020 Assessment & Plan (1) Ureterolithiasis: Will need likely 1-2 weeks of abx and plan to have ESWL for treatment of stone at that time. Agree with supportive care and time. Hydrate. Increase activity. Followup in office to schedule procedure. Subjective Postop from stent placement for obstruction issues. Patient has been tolerating well. Has noticed some frequency and urgency. Has not had severe pain in the back and flank. Does have occasional burning and irritation. No severe episodes or major changes. No new nausea or vomiting. Had tolerated anesthesia without major problems Review of Systems Review of Systems: All systems reviewed & are unremarkable except as noted in HPI & below Physical Exam Physical Exam: General: Alert in no acute distress. HEENT: Normocephalic Atraumatic. Inspection normal. Cranial Nerves 2-12 Grossly intact. Normal inspection of face. Normal inspection of neck. Psychologic: Normal affect. Respiratory: Nonlabored. No use of accessory muscles. No tachypnea or dyspnea. Cardiovascular: No tachycardia Skin: [place] and Dry. No rashes or visible lesions. Extremities/Lymphatics: No edema Abdomen: Soft Non-distended. No rebound or guarding. Results & Data Vital Signs (Past 12 Hours) Vital Signs Temp Pulse Resp BP Pulse Ox 03/13/20 13:34 36.9 C 52 L 18 123/60 97 03/13/20 08:36 36.9 C 52 L 18 123/60 97 PG Care Time/CCT Total # of Minutes Spent Total Time Spent with Patient: Total time spent is greater than 50% in coordination of care (as documented) at patient's floor/unit and/or counseling patient: Coding Level of Care Code 12171 Subseq Hosp Care Lvl 3 Diagnoses Ureterolithiasis N20.1
[2020-03-13] MEDS ORDERED: DOXYCYCLINE HOME PACK 100 MG/CAP PO ONE (14:36)
[2020-03-13] MEDS ORDERED: cephALEXin 500MG HOME PACK PO ONE (14:36)
--- NOTE | 2020-03-14 01:36 | Billing Data ---
Date of Service March 14, 2020 Coding Level of Care Code 47149 Initial Inpt Care Lvl 3
[2020-03-17 13:17] LABS: 18KDIGG Band REACTIVE; 23KDIGG Band REACTIVE; 23KDIGM Band REACTIVE; 28KDIGG Band NON-REACTIVE; 30KDIGG Band NON-REACTIVE; 39KDIGG Band NON-REACTIVE; 39KDIGM Band NON-REACTIVE; 41KDIGG Band REACTIVE; 41KDIGM Band NON-REACTIVE; 45KDIGG Band NON-REACTIVE; 58KDIGG Band NON-REACTIVE; 66KDIGG Band NON-REACTIVE; 93KDIGG Band REACTIVE; Lyme Antibodies, WB IgG NEGATIVE (NEGATIVE); Lyme Antibodies, WB IgM NEGATIVE (NEGATIVE)
== END 2020-03-13 15:35 | disposition home or self-care (01) | DRG 694 ==
LOC: ED 18:04 → 3N 03-12 01:42 → SUATTDRO 03-12 01:42 → 3N 03-12 02:44